=== PATIENT | female | born 1970 | race Caucasian/White ===

== ENCOUNTER 2018-08-23 09:53 | Emergency (ER) | payer MEDICAID, OTHER ==
[~2018-08-23] VITALS: Ht 160 cm; Wt 70.0 kg
[~2018-08-23 09:53] MED LIST: IBUP-1986 PO; PANT-47 PO
[2018-08-23] MEDS ORDERED: normal saline 1000ML IV soln IVB ONE (10:15)
[2018-08-23] MEDS ORDERED: ibuprofen tablet 400 MG TABLET PO ONE (10:15)
[2018-08-23 10:35] VITALS: BP 124/102
[2018-08-23 10:43] LABS: BASOPHILS # (AUTO) 0.1 X10'3 (0-0.2); BASOPHILS % (AUTO) 1.5 % (0-1); EOSINOPHILS # (AUTO) 0.2 X10'3 (0-0.9); EOSINOPHILS % (AUTO) 2.8 % (0-6); HEMOGLOBIN 15.9 g/dl (12.0-16.0); LYMPHOCYTES # (AUTO) 2.8 X10'3 (1.1-4.8); MEAN CORPUSCULAR HEMOGLOBIN 33.8 PG (27.0-31.0); MEAN CORPUSCULAR HGB CONC 33.8 % (33.0-36.5); MEAN PLATELET VOLUME 7.4 FL (7.4-10.4); MONOCYTES # (AUTO) 0.7 X10'3 (0-0.9); MONOCYTES % (AUTO) 11.5 % (2-12); NEUTROPHILS # (AUTO) 2.6 X10'3 (1.8-7.7); NEUTROPHILS % (AUTO) 40.2 % (42-75); PLATELET COUNT 266 X10'3 (140-440); RED CELL DISTRIBUTION WIDTH 13.1 % (11.5-14.5); WHITE BLOOD COUNT 6.4 X10'3 (4.5-11.0)
[2018-08-23 10:57] LABS: ALANINE AMINOTRANSFERASE 62 U/L (12-78); ALBUMIN 3.2 G/DL (3.4-5.0); ALBUMIN/GLOBULIN RATIO 0.7 (1.1-1.5); ALKALINE PHOSPHATASE 113 IU/L (46-116); ANION GAP 13 (8-16); ASPARTATE AMINO TRANSFERASE 162 U/L (10-37); BILIRUBIN,TOTAL 0.2 MG/DL (0.1-1.0); BLOOD UREA NITROGEN 12 MG/DL (7-18); CALCIUM 7.8 MG/DL (8.5-10.1); CHLORIDE 104 MMOL/L (99-107); CREATININE 0.75 MG/DL (0.40-0.90); GLUCOSE 107 MG/DL (70-104); POTASSIUM 3.4 MMOL/L (3.5-5.1); SODIUM 143 MMOL/L (135-145); TOTAL CARBON DIOXIDE 26.5 MMOL/L (24-32); TOTAL PROTEIN 7.7 G/DL (6.4-8.2); eGFR 82 ML/MIN
[2018-08-23 11:54] LABS: CLARITY,URINE CLEAR (Clear); COLOR,URINE YELLOW (Yellow); GLUCOSE, URINE NEGATIVE (Neg); KETONES,URINE NEGATIVE (Neg); LEUKOCYTE ESTERASE ,URINE NEGATIVE (Neg); NITRITES, URINE NEGATIVE (Neg); OCCULT BLOOD,URINE NEGATIVE (Neg); PROTEIN,URINE NEGATIVE (Neg); UA COLLECTION TYPE CLN CATCH MIDSTREAM; UROBILINOGEN,URINE 0.2 E.U/dL (0.2-1.0)
[2018-08-23] MEDS ORDERED: AZIT500T PO (11:57)
[2018-08-23] MEDS ORDERED: BENZ-16 PO (11:57)
[2018-08-23] MEDS ORDERED: IBUP-1985 PO (12:08)
== END 2018-08-23 12:27 | disposition home or self-care (01) ==
LOC: ER 09:54
DX: J22 Unspecified acute lower respiratory infection (principal); G89.29 Other chronic pain; Z79.899 Other long term (current) drug therapy; Z98.890 Other specified postprocedural states
CPT/HCPCS: 36415; 71045; 80053; 81003; 85025; 87502; 87503; 99284; J7030

== ENCOUNTER 2022-02-04 15:39 | Inpatient (IN) | payer MEDICAID, OTHER ==
[~2022-02-04] VITALS: Ht 160 cm; Wt 77.3 kg
[~2022-02-04 15:39] MED LIST changes: +BENZ-16 PO; +IBUP-1985 PO
[2022-02-04] MEDS ORDERED: folic acid 1mg/0.2ml inj IV ONE (15:50)
[2022-02-04] MEDS ORDERED: normal saline 1000ML IV soln IVB ONE (15:50)
[2022-02-04] MEDS ORDERED: thiamine 100mg/ml 2ml inj. IV ONE (15:50)
[2022-02-04 16:07] LABS: HEMOGLOBIN 11.9 g/dl (12.0-16.0); MEAN CORPUSCULAR VOLUME 97.3 FL (78-98); RED CELL DISTRIBUTION WIDTH 15.7 % (11.5-14.5)
[2022-02-04 16:08] LABS: BASOPHILS % (AUTO) 0.3 % (0-1); EOSINOPHILS % (AUTO) 0 % (0-6); HEMATOCRIT 34.4 % (35.0-45.0); LYMPHOCYTES # (AUTO) 1.5 X10'3 (1.1-4.8); MEAN CORPUSCULAR HEMOGLOBIN 33.6 PG (27.0-31.0); MEAN CORPUSCULAR HGB CONC 34.5 g/dL (33.0-36.5); MEAN PLATELET VOLUME 8.2 FL (7.4-10.4); MONOCYTES # (AUTO) 1.1 X10'3 (0-0.9); MONOCYTES % (AUTO) 7.7 % (2-12); NEUTROPHILS # (AUTO) 11.3 X10'3 (1.8-7.7); PLATELET COUNT 169 X10'3 (140-440); RED BLOOD COUNT 3.53 X10'6 (4.20-5.60)
[2022-02-04] MEDS ORDERED: ESCI5TAB PO (16:15)
[2022-02-04 16:49] LABS: ALANINE AMINOTRANSFERASE 40 U/L (12-78); ALBUMIN 2.4 G/DL (3.4-5.0); ALKALINE PHOSPHATASE 316 IU/L (46-116); ANION GAP 9 (8-16); ASPARTATE AMINO TRANSFERASE 325 U/L (10-37); BILIRUBIN,TOTAL 4.1 MG/DL (0.1-1.0); BLOOD UREA NITROGEN 16 MG/DL (7-18); BUN/CREATININE RATIO 26.2 (6.6-38.0); CALCIUM 7.3 MG/DL (8.5-10.1); CHLORIDE 99 MMOL/L (99-107); CREATININE 0.61 MG/DL (0.40-0.90); GLUCOSE 128 MG/DL (70-104); MAGNESIUM 1.6 MG/DL (1.5-2.4); SODIUM 140 MMOL/L (135-145); TOTAL CARBON DIOXIDE 31.6 MMOL/L (24-32); eGFR > 90 ML/MIN
[2022-02-04 16:51] LABS: ALBUMIN/GLOBULIN RATIO 0.5 (1.1-1.5); ETHANOL 0.415 GM/DL (0.0-0.010); TOTAL PROTEIN 7.2 G/DL (6.4-8.2)
[2022-02-04 16:52] LABS: POTASSIUM 2.7 MMOL/L (3.5-5.1)
[2022-02-04] MEDS ORDERED: potassium Cl 10 mEq/100mL bag IV ONE ×2 (17:00→17:19)
[2022-02-04] MEDS ORDERED: magnesium 4gm in 100ml NS 100 ML IV ONE (17:45)
[2022-02-04] MEDS ORDERED: CefTRIAXone 2gm/NS 100ml IVPB 100 ML IV ONE (17:45)
[2022-02-04 17:49] LABS: CLARITY,URINE CLEAR (Clear); COLOR,URINE YELLOW (Yellow); GLUCOSE, URINE 100 mg/dl (Neg); KETONES,URINE TRACE mg/dl (Neg); LEUKOCYTE ESTERASE ,URINE NEGATIVE (Neg); NITRITES, URINE NEGATIVE (Neg); OCCULT BLOOD,URINE NEGATIVE (Neg); PROTEIN,URINE 30 mg/dl (Neg); UA COLLECTION TYPE STRAIGHT CATH
[2022-02-04 17:55] LABS: BACTERIA,URINE NONE SEEN /HPF (Neg); RBC,URINE 0-2 /HPF (0-2); SQUAMOUS EPITHELIAL CELL,UR FEW /LPF (FEW); WBC,URINE NONE SEEN /HPF (0-4)
[2022-02-04 18:01] LABS: URINE AMPHETAMINE SCREEN NEGATIVE (Neg); URINE BARBITUATE SCREEN NEGATIVE (Neg); URINE BENZODIAZEPINES SCREEN NEGATIVE (Neg); URINE CANNABINOID SCREEN POSITIVE (Neg); URINE COCAINE SCREEN NEGATIVE (Neg); URINE METHADONE SCREEN NEGATIVE (Neg); URINE OPIATE SCREEN NEGATIVE (Neg); URINE PHENCYCLIDINE SCREEN NEGATIVE (Neg)
[2022-02-04] MEDS ORDERED: magnesium 4gm in 100ml NS 100 ML IV PRN (19:00)
[2022-02-04] MEDS ORDERED: acetaminophen 650mg rectal suppository RC PRN (19:00)
[2022-02-04] MEDS ORDERED: mag hydrox/Alum hydrox/simeth 30ml oral suspension PO PRN (19:00)
[2022-02-04] MEDS ORDERED: haloperidol lactate 5mg/ml inj IM PRN (19:00)
[2022-02-04] MEDS ORDERED: potassium CL 10mEq/100ml bag 100 ML IV PRN (19:00)
[2022-02-04] MEDS ORDERED: diphenhydrAMINE 25mg capsule PO PRN (19:00)
[2022-02-04] MEDS ORDERED: magnesium 2GM in 50ml NS 50 ML IV PRN (19:00)
[2022-02-04] MEDS: potassium Cl 20mEq in D5-NS 1,000 ML IV SCH (19:00)
[2022-02-04] MEDS ORDERED: dextrose 50%-water 50ml dispensing syringe IV PRN (19:00)
[2022-02-04] MEDS ORDERED: magnesium Cl slow-release 64mg tablet PO PRN (19:00)
[2022-02-04] MEDS ORDERED: POTASSIUM BICARB 20meq eff tab 20 MEQ TABLET.EFF PO PRN ×2 (19:00)
[2022-02-04] MEDS ORDERED: morphine 2 MG/ML inj. syringe IV PRN ×2 (19:00)
[2022-02-04] MEDS ORDERED: bisacodyl 10mg suppository rectal RC PRN (19:00)
[2022-02-04] MEDS ORDERED: ondansetron/PF 4mg/2ml inj IV PRN (19:00)
[2022-02-04] MEDS ORDERED: acetaminophen 325mg tablet PO PRN ×2 (19:00)
[2022-02-04] MEDS ORDERED: magnesium hydroxide 30ml (MOM) UD suspension PO PRN (19:00)
[2022-02-04 19:32] LABS: HEMOGLOBIN A1C 6.1 % (4.5-6.2)
[2022-02-04] MEDS ORDERED: docusate sod 100mg capsule PO SCH (20:00)
[2022-02-04] MEDS: K and/or MAG REPLACEMENT MC SCH (20:00)
[2022-02-04] MEDS: thiamine 100mg/ml 2ml inj. IV SCH (21:00)
[2022-02-04] MEDS: heparin, porcine 5000 units/ml vial SQ SCH (21:31)
--- NOTE | 2022-02-04 22:02 | NUR ---
Ellie chinchilla in ED - 02/04/22 at 2204 by TITI PT FOUND GETTING OUT OF BED. PT REFUSES TO ANSWER NURSE QUESTIONS. PT WANTED TO GET OUT OF BED AND YELLED "LET ME OUT I AM SUFFOCATING" WHEN SHE WANTED THE SIDE RAIL PUT DOWN BUT REFUSES TO TALK OTHERWISE.
--- NOTE | 2022-02-04 22:02 | NUR ---
Ellie chinchilla in [facility] - 02/04/22 at 2204 by RBKASSANDRAT PT TO CT
--- NOTE | 2022-02-04 22:22 | NUR ---
paged Dr. Blair regarding critical lactate
[2022-02-04 22:54] VITALS: BP 147/80
[2022-02-05] VITALS (7 sets, daily range): BP systolic 130–144; BP diastolic 55–80
[2022-02-05] MEDS: LORazepam 2 mg/ml vial IV PRN ×9 (01:25→23:56)
--- NOTE | 2022-02-05 02:27 | NUR ---
page sent to dr. reid about patient lactic acid being 5.3. gave verbal order for redraw in 3 hours.
[2022-02-05] MEDS ORDERED: normal saline 500ml IV soln 500 ML IV ONE (03:45)
[2022-02-05] MEDS ORDERED: piperacillin/tazo 3.375gm/50ml 50 ML IV ONE (04:08)
--- NOTE | 2022-02-05 04:23 | NUR ---
spoke with dr blair about patients status. HR sustaining in 130-140s, RR 25, temp 101.7. WBC is elevated and procal is slightly elevated. Dr. Blair gave a verbal order for 500cc bolus of NS and one time dose of zosyn.
[2022-02-05 05:18] LABS: HIV ANTIBODY 1&2 RAPID NON-REACTIVE (Neg)
--- NOTE | 2022-02-05 06:52 | NUR ---
Patient in room PCU 3015. I have received report from Amy BOLAND and had the opportunity to ask questions and assume patient care.
[2022-02-05 07:12] LABS: ALANINE AMINOTRANSFERASE 31 U/L (12-78); ALBUMIN 2.1 G/DL (3.4-5.0); ALKALINE PHOSPHATASE 256 IU/L (46-116); AMYLASE 46 U/L (25-115); ANION GAP 9 (8-16); ASPARTATE AMINO TRANSFERASE 238 U/L (10-37); BILIRUBIN,TOTAL 6.1 MG/DL (0.1-1.0); BLOOD UREA NITROGEN 17 MG/DL (7-18); CALCIUM 6.5 MG/DL (8.5-10.1); CHLORIDE 99 MMOL/L (99-107); CREATININE 0.74 MG/DL (0.40-0.90); GLUCOSE 160 MG/DL (70-104); HDL CHOLESTEROL 13 MG/DL (35-60); LDL CHOLESTEROL 80 MG/DL (50-100); MAGNESIUM 1.9 MG/DL (1.5-2.4); POTASSIUM 3.1 MMOL/L (3.5-5.1); SODIUM 134 MMOL/L (135-145); TOTAL CARBON DIOXIDE 26.5 MMOL/L (24-32); eGFR 82 ML/MIN
[2022-02-05 07:13] LABS: CHOLESTEROL 119 MG/DL (0-200); TOTAL PROTEIN 6.1 G/DL (6.4-8.2); TRIGLYCERIDES 198 MG/DL (20-135)
[2022-02-05 07:18] LABS: ALBUMIN/GLOBULIN RATIO 0.5 (1.1-1.5)
--- NOTE | 2022-02-05 07:23 | NUR ---
Paged - Critical Lab Message: [id number] Seema Lopez: Critical lab value - Phosphorus 1.0 [facility] - ext [phone] Transaction number: [id number]
[2022-02-05 07:26] LABS: EOSINOPHILS % (AUTO) 0.1 % (0-6); HEMOGLOBIN 9.5 g/dl (12.0-16.0); MONOCYTES # (AUTO) 0.8 X10'3 (0-0.9); MONOCYTES % (AUTO) 6.9 % (2-12)
[2022-02-05 07:32] LABS: HEMATOCRIT 28.2 % (35.0-45.0); MEAN CORPUSCULAR HEMOGLOBIN 32.4 PG (27.0-31.0); MEAN CORPUSCULAR HGB CONC 33.8 g/dL (33.0-36.5); MEAN CORPUSCULAR VOLUME 95.9 FL (78-98); PLATELET COUNT 102 X10'3 (140-440); RED BLOOD COUNT 2.93 X10'6 (4.20-5.60); RED CELL DISTRIBUTION WIDTH 15.5 % (11.5-14.5); WHITE BLOOD COUNT 11.7 X10'3 (4.5-11.0)
[2022-02-05 07:33] LABS: BASOPHILS # (AUTO) 0.1 X10'3 (0-0.2); BASOPHILS % (AUTO) 0.6 % (0-1); LYMPHOCYTES # (AUTO) 0.9 X10'3 (1.1-4.8); LYMPHOCYTES % (AUTO) 7.5 % (21-51); MEAN PLATELET VOLUME 9.4 FL (7.4-10.4); NEUTROPHILS # (AUTO) 9.9 X10'3 (1.8-7.7); NEUTROPHILS % (AUTO) 84.9 % (42-75)
[2022-02-05 07:34] LABS: CHOL/HDL RATIO 9.2 (0.00-4.99)
--- NOTE | 2022-02-05 07:52 | NUR ---
paged for possible sepsis: Message: [id number] Seema Lopez: Patient has following sepsis markers - Temp: 101.1, HR 144, RR 24, WBC is still pending. Constant Diarrhea. PM nurse reports PT was this way most of night, night paged but only ordered bolus of 500. Sanaz [id number] Transaction number: [id number]
[2022-02-05] MEDS: K and/or MAG REPLACEMENT MC SCH ×2 (08:00→20:00)
--- NOTE | 2022-02-05 08:52 | NUR ---
Message: LINNEA PATTON [employer]@[email or web address], [phone] HAS CRITICAL LOW PHOS@1.0 WITH NO REPLACEMENT ORDER. THX
[2022-02-05] MEDS: potassium Cl 20mEq in D5-NS 1,000 ML IV SCH ×3 (09:32→21:31)
[2022-02-05] MEDS: thiamine 100mg/ml 2ml inj. IV SCH ×3 (09:32→21:34)
[2022-02-05] MEDS: folic acid 1mg/0.2ml inj IV SCH (09:32)
[2022-02-05] MEDS: multivitamins, therapeutics tablet PO SCH (09:33)
[2022-02-05] MEDS: heparin, porcine 5000 units/ml vial SQ SCH (09:33)
[2022-02-05] MEDS: ESCITALOPRAM OXALATE 5 MG TABLET PO SCH (09:34)
[2022-02-05] MEDS ORDERED: potassium phosphate inj 30 MMOL in normal saline 500ml IV soln 500 ML IV ONE ×2 (09:35→20:00)
[2022-02-05] MEDS ORDERED: normal saline 1000ml 1,000 ML IV ONE (09:40)
[2022-02-05] MEDS: piperacillin/tazo 3.375gm/50ml 50 ML IV SCH ×2 (10:15→15:53)
[2022-02-05] MEDS ORDERED: VANCOmycin 2,000MG in NS 500ml IV soln IV ONE (11:00)
[2022-02-05] MEDS: lactulose 20gm/30ml cup PO SCH ×3 (12:03→21:32)
[2022-02-05 13:54] LABS: OCCULT BLOOD STOOL POSITIVE (Neg)
[2022-02-05 14:11] LABS: C DIFF SPECIMEN=DIARRHEA? ACCEPTABLE; C DIFFICILE TOXINS A&B NEGATIVE (Neg)
[2022-02-05] MEDS: HYDROcodone/acetaminophen 10/325mg tab PO PRN (18:00)
--- NOTE | 2022-02-05 18:00 | NUR ---
Accidentally threw norco pill package away before scanning. Ended up in bag with c diff covered wipes. Was not going to retrieve to scan. Loren - floor aid witnessed medication being administered to patient and patient taking medication, as well as pill pack in contaminated garbage.
[2022-02-05] MEDS ORDERED: vancomycin 250MG/10ML UD oral solution 10ML BOTTLE PO SCH (18:35)
[2022-02-05] MEDS ORDERED: IOHEXOL 12MG/ML oral solution 500 ML BOTTLE PO ONE (18:40)
[2022-02-05] MEDS ORDERED: diatr meglu/diatrizoate 30ml oral sol.-(3 dose) bottle PO ONE (19:50)
[2022-02-05] MEDS ORDERED: diatr meglu/diatrizoate 30ml oral sol.-(3 dose) bottle PO SCH (19:50)
[2022-02-05] MEDS: lactobacillus rhamnosus 10,000 MMU CELLS/CAPSULE PO SCH (21:33)
[2022-02-05] MEDS: vancomycin 125mg/5ml ORAL solution 5ml UD oral syringe PO SCH (21:34)
[2022-02-05] MEDS ORDERED: vancomycin/NS 1 GM ADD-VANTAGE 250 ML IV SCH (23:00)
[2022-02-06] MEDS: LORazepam 2 mg/ml vial IV PRN ×8 (01:32→22:37)
[2022-02-06 03:00] VITALS: BP 141/76
[2022-02-06] MEDS: lactulose 20gm/30ml cup PO SCH ×4 (03:12→19:56)
[2022-02-06] MEDS: vancomycin 125mg/5ml ORAL solution 5ml UD oral syringe PO SCH ×4 (03:12→20:21)
[2022-02-06] MEDS: HYDROcodone/acetaminophen 10/325mg tab PO PRN (03:14)
[2022-02-06 06:00] VITALS: BP 106/55
[2022-02-06 06:32] LABS: BASOPHILS # (AUTO) 0.1 X10'3 (0-0.2); BASOPHILS % (AUTO) 0.7 % (0-1); EOSINOPHILS % (AUTO) 0.4 % (0-6); HEMATOCRIT 28.1 % (35.0-45.0); HEMOGLOBIN 9.7 g/dl (12.0-16.0); LYMPHOCYTES # (AUTO) 0.8 X10'3 (1.1-4.8); LYMPHOCYTES % (AUTO) 8.7 % (21-51); MEAN CORPUSCULAR HEMOGLOBIN 34.2 PG (27.0-31.0); MEAN CORPUSCULAR HGB CONC 34.5 g/dL (33.0-36.5); MEAN CORPUSCULAR VOLUME 98.9 FL (78-98); MEAN PLATELET VOLUME 8.6 FL (7.4-10.4); MONOCYTES # (AUTO) 0.7 X10'3 (0-0.9); MONOCYTES % (AUTO) 7.9 % (2-12); NEUTROPHILS # (AUTO) 7.2 X10'3 (1.8-7.7); NEUTROPHILS % (AUTO) 82.3 % (42-75); PLATELET COUNT 115 X10'3 (140-440); RED BLOOD COUNT 2.85 X10'6 (4.20-5.60); RED CELL DISTRIBUTION WIDTH 16.3 % (11.5-14.5); WHITE BLOOD COUNT 8.7 X10'3 (4.5-11.0)
[2022-02-06 06:36] LABS: ALANINE AMINOTRANSFERASE 27 U/L (12-78); ALBUMIN 1.9 G/DL (3.4-5.0); ALKALINE PHOSPHATASE 245 IU/L (46-116); AMYLASE 32 U/L (25-115); ANION GAP 9 (8-16); ASPARTATE AMINO TRANSFERASE 219 U/L (10-37); BILIRUBIN,TOTAL 10.1 MG/DL (0.1-1.0); BLOOD UREA NITROGEN 13 MG/DL (7-18); BUN/CREATININE RATIO 21.7 (6.6-38.0); CALCIUM 6.1 MG/DL (8.5-10.1); CHLORIDE 109 MMOL/L (99-107); GLUCOSE 88 MG/DL (70-104); MAGNESIUM 1.6 MG/DL (1.5-2.4); SODIUM 140 MMOL/L (135-145); TOTAL CARBON DIOXIDE 22.2 MMOL/L (24-32); eGFR > 90 ML/MIN
[2022-02-06 06:39] LABS: ALBUMIN/GLOBULIN RATIO 0.5 (1.1-1.5); PHOSPHORUS 1.8 MG/DL (2.3-4.5); POTASSIUM 3.2 MMOL/L (3.5-5.1); TOTAL PROTEIN 5.8 G/DL (6.4-8.2)
[2022-02-06] MEDS ORDERED: iohexol 350MG/ML 100ml bottle IV ONE (08:00)
[2022-02-06] MEDS: K and/or MAG REPLACEMENT MC SCH ×2 (08:00→20:00)
[2022-02-06] MEDS: thiamine 100mg/ml 2ml inj. IV SCH ×3 (09:06→20:21)
[2022-02-06] MEDS: ESCITALOPRAM OXALATE 5 MG TABLET PO SCH (09:06)
[2022-02-06] MEDS: multivitamins, therapeutics tablet PO SCH (09:07)
[2022-02-06] MEDS: lactobacillus rhamnosus 10,000 MMU CELLS/CAPSULE PO SCH ×2 (09:07→19:56)
[2022-02-06] MEDS: potassium Cl 20mEq in D5-NS 1,000 ML IV SCH ×2 (09:16→23:49)
[2022-02-06 11:00] VITALS: BP 118/64
[2022-02-06] MEDS ORDERED: IOHEXOL 12MG/ML oral solution 500 ML BOTTLE PO ONE (11:15)
[2022-02-06] MEDS: folic acid 1mg/0.2ml inj IV SCH (11:28)
[2022-02-06 15:00] VITALS: BP 143/72
--- NOTE | 2022-02-06 16:36 | NUR ---
The [facility] crisis and discharge team called to provide contact information for their agency. [place] [phone], or [phone].
[2022-02-06 18:00] VITALS: BP 137/80
--- NOTE | 2022-02-06 18:35 | NUR ---
Patient in room PCU 3015. I have received report from Erinn BOLAND and had the opportunity to ask questions and assume patient care.
[2022-02-06] MEDS ORDERED: LORazepam 1 MG tablet PO PRN (19:00)
[2022-02-06] MEDS ORDERED: potassium phosphate inj 30 MMOL in normal saline 500ml IV soln 500 ML IV ONE (21:50)
[2022-02-06 22:00] VITALS: BP 128/56
[2022-02-07 02:00] VITALS: BP 122/58
[2022-02-07] MEDS: vancomycin 125mg/5ml ORAL solution 5ml UD oral syringe PO SCH ×4 (02:16→19:51)
[2022-02-07] MEDS: lactulose 20gm/30ml cup PO SCH ×4 (02:16→19:51)
[2022-02-07] MEDS: LORazepam 2 mg/ml vial IV PRN ×5 (02:17→16:28)
[2022-02-07] MEDS: HYDROcodone/acetaminophen 10/325mg tab PO PRN ×2 (04:19→14:31)
[2022-02-07 06:37] LABS: BASOPHILS # (AUTO) 0.1 X10'3 (0-0.2); EOSINOPHILS # (AUTO) 0.1 X10'3 (0-0.9); EOSINOPHILS % (AUTO) 0.5 % (0-6); HEMATOCRIT 25.4 % (35.0-45.0); HEMOGLOBIN 8.8 g/dl (12.0-16.0); LYMPHOCYTES # (AUTO) 1.1 X10'3 (1.1-4.8); LYMPHOCYTES % (AUTO) 10.6 % (21-51); MEAN CORPUSCULAR HEMOGLOBIN 35.1 PG (27.0-31.0); MEAN CORPUSCULAR HGB CONC 34.6 g/dL (33.0-36.5); MEAN CORPUSCULAR VOLUME 101.4 FL (78-98); MEAN PLATELET VOLUME 9.6 FL (7.4-10.4); MONOCYTES # (AUTO) 0.9 X10'3 (0-0.9); MONOCYTES % (AUTO) 8.8 % (2-12); NEUTROPHILS # (AUTO) 7.9 X10'3 (1.8-7.7); NEUTROPHILS % (AUTO) 79.1 % (42-75); PLATELET COUNT 110 X10'3 (140-440); RED BLOOD COUNT 2.51 X10'6 (4.20-5.60); RED CELL DISTRIBUTION WIDTH 16.3 % (11.5-14.5)
--- NOTE | 2022-02-07 06:40 | NUR ---
Problems reprioritized. Patient report given, questions answered & plan of care reviewed with Jeri BOLAND.
[2022-02-07 07:10] LABS: ALANINE AMINOTRANSFERASE 23 U/L (12-78); ALBUMIN 1.8 G/DL (3.4-5.0); ALKALINE PHOSPHATASE 219 IU/L (46-116); AMYLASE 34 U/L (25-115); ANION GAP 10 (8-16); ASPARTATE AMINO TRANSFERASE 176 U/L (10-37); BILIRUBIN,TOTAL 10.9 MG/DL (0.1-1.0); BLOOD UREA NITROGEN 10 MG/DL (7-18); CALCIUM 6.2 MG/DL (8.5-10.1); CHLORIDE 109 MMOL/L (99-107); GLUCOSE 76 MG/DL (70-104); MAGNESIUM 1.4 MG/DL (1.5-2.4); SODIUM 139 MMOL/L (135-145); TOTAL CARBON DIOXIDE 20.5 MMOL/L (24-32); eGFR > 90 ML/MIN
[2022-02-07 07:12] LABS: ALBUMIN/GLOBULIN RATIO 0.5 (1.1-1.5); PHOSPHORUS 2.7 MG/DL (2.3-4.5); POTASSIUM 3.8 MMOL/L (3.5-5.1); TOTAL PROTEIN 5.5 G/DL (6.4-8.2)
[2022-02-07] MEDS: ESCITALOPRAM OXALATE 5 MG TABLET PO SCH (08:00)
[2022-02-07] MEDS: K and/or MAG REPLACEMENT MC SCH ×2 (08:00→18:52)
[2022-02-07] MEDS: folic acid 1mg/0.2ml inj IV SCH (08:00)
[2022-02-07] MEDS: thiamine 100mg/ml 2ml inj. IV SCH ×2 (08:00→13:00)
[2022-02-07] MEDS: lactobacillus rhamnosus 10,000 MMU CELLS/CAPSULE PO SCH ×2 (08:00→19:50)
[2022-02-07] MEDS: multivitamins, therapeutics tablet PO SCH (09:45)
[2022-02-07] MEDS ORDERED: VANCOMYCIN LEVEL IV ONE (10:30)
[2022-02-07 13:31] LABS: HBSAG SCREEN Negative (Negative); HEP A AB, IGM Negative (Negative); HEPATITIS C ANTIBODY 0.2 s/co ratio (0.0-0.9)
--- NOTE | 2022-02-07 13:57 | NUR ---
While I was at lunch my patient fell. I came back and the charge nurser and sitter reported that when the sitter turned to toss a soiled chucks the patient stood up from commode and fell. She said, " I know she told me not to get up, I'm such an idiot for getting up. I fell and hit my lower back." What is your pain level i asked? "6." she reported. Doctor was informed and wants the sitter to use bed carr and bed alarm to prevent any more falls.
[2022-02-07] MEDS: potassium Cl 20mEq in D5-NS 1,000 ML IV SCH ×2 (14:00→17:16)
[2022-02-07] MEDS: Ursodiol 300mg capsule PO SCH ×2 (15:05→20:00)
[2022-02-07] MEDS: propranolol 10mg tablet PO SCH ×2 (15:15→19:50)
[2022-02-07 18:00] VITALS: BP 96/52
--- NOTE | 2022-02-07 18:45 | NUR ---
Patient in room PCU 3015. I have received report from Jeri BOLAND and had the opportunity to ask questions and assume patient care. Pt sitting up eating dinner, sitter at bedside, no signs of distress.
[2022-02-07] MEDS: lactose-reduced food (Ensure Enlive) - 237ml bottle PO SCH (18:54)
[2022-02-07 19:06] VITALS: BP 126/69
[2022-02-07 19:55] VITALS: BP 105/56
[2022-02-07 22:00] VITALS: BP 103/61
[2022-02-08] MEDS: HYDROcodone/acetaminophen 10/325mg tab PO PRN ×2 (00:23→19:18)
[2022-02-08] MEDS: potassium Cl 20mEq in D5-NS 1,000 ML IV SCH ×2 (00:47→13:00)
[2022-02-08] MEDS: vancomycin 125mg/5ml ORAL solution 5ml UD oral syringe PO SCH ×4 (02:11→19:18)
[2022-02-08] MEDS: lactulose 20gm/30ml cup PO SCH ×4 (02:11→19:17)
[2022-02-08 06:00] VITALS: BP 100/60
[2022-02-08 06:40] LABS: BASOPHILS # (AUTO) 0.1 X10'3 (0-0.2); BASOPHILS % (AUTO) 0.6 % (0-1); EOSINOPHILS # (AUTO) 0.1 X10'3 (0-0.9); EOSINOPHILS % (AUTO) 1.2 % (0-6); HEMATOCRIT 27.1 % (35.0-45.0); HEMOGLOBIN 9.3 g/dl (12.0-16.0); MEAN CORPUSCULAR HEMOGLOBIN 35.3 PG (27.0-31.0); MEAN CORPUSCULAR HGB CONC 34.3 g/dL (33.0-36.5); MEAN CORPUSCULAR VOLUME 102.9 FL (78-98); MEAN PLATELET VOLUME 8.7 FL (7.4-10.4); MONOCYTES # (AUTO) 1.1 X10'3 (0-0.9); MONOCYTES % (AUTO) 10.5 % (2-12); NEUTROPHILS # (AUTO) 7.8 X10'3 (1.8-7.7); NEUTROPHILS % (AUTO) 77.7 % (42-75); PLATELET COUNT 157 X10'3 (140-440); RED BLOOD COUNT 2.64 X10'6 (4.20-5.60); RED CELL DISTRIBUTION WIDTH 17.1 % (11.5-14.5)
--- NOTE | 2022-02-08 06:57 | NUR ---
Problems reprioritized. Patient report given, questions answered & plan of care reviewed with Jhoana BOLAND.
[2022-02-08 07:10] LABS: ALANINE AMINOTRANSFERASE 22 U/L (12-78); ALBUMIN 1.8 G/DL (3.4-5.0); ALKALINE PHOSPHATASE 215 IU/L (46-116); ANION GAP 10 (8-16); ASPARTATE AMINO TRANSFERASE 145 U/L (10-37); BILIRUBIN,TOTAL 11.9 MG/DL (0.1-1.0); BLOOD UREA NITROGEN 12 MG/DL (7-18); BUN/CREATININE RATIO 20.3 (6.6-38.0); CALCIUM 6.5 MG/DL (8.5-10.1); CHLORIDE 110 MMOL/L (99-107); CREATININE 0.59 MG/DL (0.40-0.90); GLUCOSE 120 MG/DL (70-104); MAGNESIUM 1.5 MG/DL (1.5-2.4); SODIUM 140 MMOL/L (135-145); TOTAL CARBON DIOXIDE 20.1 MMOL/L (24-32); eGFR > 90 ML/MIN
[2022-02-08 07:11] LABS: ALBUMIN/GLOBULIN RATIO 0.5 (1.1-1.5); POTASSIUM 3.9 MMOL/L (3.5-5.1); TOTAL PROTEIN 5.6 G/DL (6.4-8.2)
[2022-02-08 07:16] LABS: PHOSPHORUS 1.1 MG/DL (2.3-4.5)
[2022-02-08] MEDS: nicotine 21mg patch - 24 hr TD SCH (08:00)
[2022-02-08] MEDS: K and/or MAG REPLACEMENT MC SCH ×2 (08:00→19:01)
[2022-02-08] MEDS: ESCITALOPRAM OXALATE 5 MG TABLET PO SCH (08:17)
[2022-02-08] MEDS: multivitamins, therapeutics tablet PO SCH (08:17)
[2022-02-08] MEDS: lactose-reduced food (Ensure Enlive) - 237ml bottle PO SCH ×3 (08:17→18:00)
[2022-02-08] MEDS: lactobacillus rhamnosus 10,000 MMU CELLS/CAPSULE PO SCH ×2 (08:17→19:17)
[2022-02-08] MEDS: propranolol 10mg tablet PO SCH ×3 (08:17→19:18)
[2022-02-08] MEDS ORDERED: potassium phosphate inj 30 MMOL in normal saline 500ml IV soln 500 ML IV ONE (08:35)
[2022-02-08] MEDS ORDERED: sodium phosphate inj. 15 MMOL in dextrose 5%-water 250 ML IV PRN (08:40)
[2022-02-08] MEDS ORDERED: sodium phosphate inj. 30 MMOL in dextrose 5% water 500ml 500 ML IV PRN (08:40)
--- NOTE | 2022-02-08 09:11 | NUR ---
Initial: Pt admitted w/ alcohol intoxication, C.Diff, sepsis, and cirrhosis per EMR. Pt currently on [facility] soft diet per PLAYGROUND ATTENDANT recs w/ low intake, avg 27% x 5 meals not meeting needs, though not surprising given pt condition. Ensure Enlive TID was also ordered and pt has consumed 50% of first ONS. Pt noted to be A&O x 2. Pt also receiving D5NS w/ KCl at 100ml/hr providing an additional 408kcals/day. LBM 02/07 noted to be diarrhea, though r/t C.diff and routine lactulose for elevated NH3. No nutrition intervention implemented at this time, will continue to monitor. Recs: 1. [facility] per PLAYGROUND ATTENDANT recs, assist w/ meals 2. Ensure Enlive TID 3. Bowel care per MD 4. Weekly scaled wts Addendum: 02/08/22 at [address] Amended: Links added.
[2022-02-08 11:00] VITALS: BP 104/67
--- NOTE | 2022-02-08 12:37 | NUR ---
Sent to [facility]: [id number] [place]: please renew the [id number] hold. thank you.
[2022-02-08] MEDS: prednisone 10mg tablet PO SCH (12:45)
[2022-02-08] MEDS: Ursodiol 300mg capsule PO SCH ×2 (13:11→19:18)
[2022-02-08 18:00] VITALS: BP 104/64
[2022-02-08] MEDS ORDERED: LORazepam 2 mg/ml vial IV PRN (19:00)
[2022-02-08] MEDS: LORazepam 1 MG tablet PO PRN (21:17)
[2022-02-08 22:00] VITALS: BP 91/57
[2022-02-08] MEDS: HYDROcodone/acetaminophen 5mg/325mg tablet PO PRN (23:32)
[2022-02-09 02:00] VITALS: BP 100/65
[2022-02-09] MEDS: vancomycin 125mg/5ml ORAL solution 5ml UD oral syringe PO SCH ×4 (04:03→19:36)
[2022-02-09] MEDS: HYDROcodone/acetaminophen 5mg/325mg tablet PO PRN ×2 (04:03→07:48)
[2022-02-09] MEDS: potassium Cl 20mEq in D5-NS 1,000 ML IV SCH (04:03)
[2022-02-09] MEDS: lactulose 20gm/30ml cup PO SCH ×4 (04:03→19:36)
[2022-02-09 06:00] VITALS: BP_SYST 106; BP_SYST 16; BP_DIAS 72
[2022-02-09 06:35] LABS: BASOPHILS # (AUTO) 0.1 X10'3 (0-0.2); EOSINOPHILS % (AUTO) 0.1 % (0-6); HEMOGLOBIN 9.6 g/dl (12.0-16.0); WHITE BLOOD COUNT 11.5 X10'3 (4.5-11.0)
[2022-02-09 06:38] LABS: BASOPHILS % (AUTO) 0.5 % (0-1); HEMATOCRIT 28.4 % (35.0-45.0); LYMPHOCYTES # (AUTO) 0.9 X10'3 (1.1-4.8); LYMPHOCYTES % (AUTO) 7.4 % (21-51); MEAN CORPUSCULAR HEMOGLOBIN 35.8 PG (27.0-31.0); MEAN CORPUSCULAR HGB CONC 33.9 g/dL (33.0-36.5); MEAN CORPUSCULAR VOLUME 105.8 FL (78-98); MEAN PLATELET VOLUME 9.3 FL (7.4-10.4); MONOCYTES # (AUTO) 1.3 X10'3 (0-0.9); MONOCYTES % (AUTO) 11.4 % (2-12); NEUTROPHILS # (AUTO) 9.3 X10'3 (1.8-7.7); NEUTROPHILS % (AUTO) 80.6 % (42-75); PLATELET COUNT 182 X10'3 (140-440); RED BLOOD COUNT 2.68 X10'6 (4.20-5.60); RED CELL DISTRIBUTION WIDTH 17.9 % (11.5-14.5)
--- NOTE | 2022-02-09 06:41 | NUR ---
Patient in room PCU 3015. I have received report from KRYSTIAN Mckeon and had the opportunity to ask questions and assume patient care.
[2022-02-09 07:07] LABS: ALANINE AMINOTRANSFERASE 21 U/L (12-78); ALBUMIN 1.7 G/DL (3.4-5.0); ALKALINE PHOSPHATASE 209 IU/L (46-116); ANION GAP 11 (8-16); ASPARTATE AMINO TRANSFERASE 120 U/L (10-37); BILIRUBIN,TOTAL 12.6 MG/DL (0.1-1.0); BLOOD UREA NITROGEN 16 MG/DL (7-18); BUN/CREATININE RATIO 24.2 (6.6-38.0); CALCIUM 6.9 MG/DL (8.5-10.1); CHLORIDE 112 MMOL/L (99-107); CREATININE 0.66 MG/DL (0.40-0.90); GLUCOSE 139 MG/DL (70-104); MAGNESIUM 1.6 MG/DL (1.5-2.4); SODIUM 141 MMOL/L (135-145); TOTAL CARBON DIOXIDE 18.1 MMOL/L (24-32); eGFR > 90 ML/MIN
[2022-02-09 07:08] LABS: ALBUMIN/GLOBULIN RATIO 0.4 (1.1-1.5); PHOSPHORUS 6.9 MG/DL (2.3-4.5); TOTAL PROTEIN 5.5 G/DL (6.4-8.2)
[2022-02-09] MEDS: nicotine 21mg patch - 24 hr TD SCH (07:46)
[2022-02-09] MEDS: multivitamins, therapeutics tablet PO SCH (07:46)
[2022-02-09] MEDS: LORazepam 1 MG tablet PO PRN (07:47)
[2022-02-09] MEDS: Ursodiol 300mg capsule PO SCH ×2 (07:47→19:36)
[2022-02-09] MEDS: lactobacillus rhamnosus 10,000 MMU CELLS/CAPSULE PO SCH ×2 (07:47→19:37)
[2022-02-09] MEDS: thiamine 100mg tablet PO SCH (07:47)
[2022-02-09] MEDS: prednisone 10mg tablet PO SCH (07:47)
[2022-02-09] MEDS: propranolol 10mg tablet PO SCH ×3 (07:47→21:27)
[2022-02-09] MEDS: folic acid 1mg tablet PO SCH (07:47)
[2022-02-09] MEDS: ESCITALOPRAM OXALATE 5 MG TABLET PO SCH (07:47)
[2022-02-09] MEDS: lactose-reduced food (Ensure Enlive) - 237ml bottle PO SCH ×3 (07:59→18:12)
[2022-02-09] MEDS: K and/or MAG REPLACEMENT MC SCH ×2 (08:00→20:00)
[2022-02-09 11:00] VITALS: BP 103/61
--- NOTE | 2022-02-09 12:02 | NUR ---
Message: Мария [facility] [phone] re Jessica [phone] please call re IV fluid orders. Current fluids ordered have reached stop date and have been DC'd by pharmacy. Thank you
--- NOTE | 2022-02-09 12:03 | NUR ---
Reassessment for potassium phosphate scheduled for 02/08 not charted by RN. This RN was not assigned pt during that shift.
[2022-02-09] MEDS: dextrose 5%-normal saline 1,000 ML IV SCH (12:47)
[2022-02-09] MEDS: HYDROcodone/acetaminophen 10/325mg tab PO PRN ×3 (14:14→22:42)
[2022-02-09 15:00] VITALS: BP 91/62
[2022-02-09 18:00] VITALS: BP 104/65
--- NOTE | 2022-02-09 18:26 | NUR ---
Problems reprioritized. Patient report given, questions answered & plan of care reviewed with JOSELYN Valenzuela.
[2022-02-09 22:00] VITALS: BP 105/67
[2022-02-10] MEDS: lactulose 20gm/30ml cup PO SCH ×4 (01:22→19:29)
[2022-02-10] MEDS: vancomycin 125mg/5ml ORAL solution 5ml UD oral syringe PO SCH ×4 (01:22→19:29)
[2022-02-10] MEDS: haloperidol 5mg tablet PO PRN (01:23)
[2022-02-10 02:00] VITALS: BP 123/87
[2022-02-10] MEDS: HYDROcodone/acetaminophen 10/325mg tab PO PRN ×3 (03:52→13:57)
[2022-02-10 06:00] VITALS: BP 113/67
--- NOTE | 2022-02-10 06:11 | NUR ---
Problems reprioritized. Patient report given, questions answered & plan of care reviewed with maeve.
--- NOTE | 2022-02-10 06:35 | NUR ---
Patient in room PCU 3015. I have received report from JOSELYN Valenzuela and had the opportunity to ask questions and assume patient care.
[2022-02-10 06:53] LABS: BASOPHILS # (AUTO) 0.1 X10'3 (0-0.2); EOSINOPHILS % (AUTO) 0.2 % (0-6); HEMOGLOBIN 9.7 g/dl (12.0-16.0); MEAN PLATELET VOLUME 9.3 FL (7.4-10.4); MONOCYTES # (AUTO) 1.2 X10'3 (0-0.9); MONOCYTES % (AUTO) 11.8 % (2-12)
[2022-02-10 06:55] LABS: BASOPHILS % (AUTO) 0.7 % (0-1); HEMATOCRIT 28.7 % (35.0-45.0); LYMPHOCYTES # (AUTO) 1.1 X10'3 (1.1-4.8); LYMPHOCYTES % (AUTO) 10.5 % (21-51); MEAN CORPUSCULAR HEMOGLOBIN 35.7 PG (27.0-31.0); MEAN CORPUSCULAR HGB CONC 33.9 g/dL (33.0-36.5); MEAN CORPUSCULAR VOLUME 105.1 FL (78-98); NEUTROPHILS # (AUTO) 7.9 X10'3 (1.8-7.7); NEUTROPHILS % (AUTO) 76.8 % (42-75); PLATELET COUNT 246 X10'3 (140-440); RED BLOOD COUNT 2.73 X10'6 (4.20-5.60); RED CELL DISTRIBUTION WIDTH 18.6 % (11.5-14.5); WHITE BLOOD COUNT 10.4 X10'3 (4.5-11.0)
[2022-02-10 07:14] LABS: ALANINE AMINOTRANSFERASE 26 U/L (12-78); ALBUMIN 1.7 G/DL (3.4-5.0); ALKALINE PHOSPHATASE 203 IU/L (46-116); ANION GAP 5 (8-16); ASPARTATE AMINO TRANSFERASE 135 U/L (10-37); BILIRUBIN,TOTAL 12.9 MG/DL (0.1-1.0); BLOOD UREA NITROGEN 19 MG/DL (7-18); BUN/CREATININE RATIO 27.1 (6.6-38.0); CALCIUM 7.6 MG/DL (8.5-10.1); CHLORIDE 113 MMOL/L (99-107); GLUCOSE 104 MG/DL (70-104); MAGNESIUM 1.6 MG/DL (1.5-2.4); SODIUM 138 MMOL/L (135-145); TOTAL CARBON DIOXIDE 19.8 MMOL/L (24-32); eGFR 88 ML/MIN
[2022-02-10 07:16] LABS: ALBUMIN/GLOBULIN RATIO 0.4 (1.1-1.5); PHOSPHORUS 1.7 MG/DL (2.3-4.5); POTASSIUM 4.1 MMOL/L (3.5-5.1); TOTAL PROTEIN 5.6 G/DL (6.4-8.2)
[2022-02-10 07:30] LABS: ANISOCYTOSIS 2+; HYPOCHROMASIA 1+; PLATELET ESTIMATE NORMAL; POLYCHROMASIA 1+; TARGET CELLS FEW
[2022-02-10] MEDS: K and/or MAG REPLACEMENT MC SCH ×2 (08:00→18:46)
[2022-02-10] MEDS: prednisone 10mg tablet PO SCH (08:01)
[2022-02-10] MEDS: ESCITALOPRAM OXALATE 5 MG TABLET PO SCH (08:01)
[2022-02-10] MEDS: dextrose 5%-normal saline 1,000 ML IV SCH (08:01)
[2022-02-10] MEDS: thiamine 100mg tablet PO SCH (08:02)
[2022-02-10] MEDS: propranolol 10mg tablet PO SCH ×3 (08:02→20:19)
[2022-02-10] MEDS: lactobacillus rhamnosus 10,000 MMU CELLS/CAPSULE PO SCH ×2 (08:02→19:29)
[2022-02-10] MEDS: Ursodiol 300mg capsule PO SCH ×2 (08:02→19:29)
[2022-02-10] MEDS: multivitamins, therapeutics tablet PO SCH (08:02)
[2022-02-10] MEDS: folic acid 1mg tablet PO SCH (08:02)
[2022-02-10] MEDS: nicotine 21mg patch - 24 hr TD SCH (08:03)
[2022-02-10] MEDS: lactose-reduced food (Ensure Enlive) - 237ml bottle PO SCH ×3 (08:03→18:09)
[2022-02-10 11:00] VITALS: BP 111/72
[2022-02-10] MEDS: LORazepam 1 MG tablet PO PRN ×2 (14:02→20:18)
[2022-02-10 15:00] VITALS: BP 113/67
[2022-02-10 18:00] VITALS: BP 105/65
--- NOTE | 2022-02-10 18:14 | NUR ---
Problems reprioritized. Patient report given, questions answered & plan of care reviewed with JOSELYN Valenzuela.
[2022-02-10 22:00] VITALS: BP 122/59
[2022-02-11] VITALS (7 sets, daily range): BP systolic 92–116; BP diastolic 42–67
[2022-02-11] MEDS: lactulose 20gm/30ml cup PO SCH ×4 (02:14→18:53)
[2022-02-11] MEDS: vancomycin 125mg/5ml ORAL solution 5ml UD oral syringe PO SCH ×4 (02:14→22:11)
[2022-02-11] MEDS: LORazepam 1 MG tablet PO PRN ×4 (02:15→22:12)
[2022-02-11] MEDS: dextrose 5%-normal saline 1,000 ML IV SCH (03:22)
--- NOTE | 2022-02-11 04:31 | NUR ---
Agreed with the physical assessment documented at 199902/10/2022.
--- NOTE | 2022-02-11 06:10 | NUR ---
Problems reprioritized. Patient report given, questions answered & plan of care reviewed with aiden.
[2022-02-11 07:04] LABS: BASOPHILS # (AUTO) 0.1 X10'3 (0-0.2); RED BLOOD COUNT 2.65 X10'6 (4.20-5.60)
[2022-02-11 07:07] LABS: BASOPHILS % (AUTO) 0.5 % (0-1); EOSINOPHILS % (AUTO) 0.2 % (0-6); HEMOGLOBIN 9.7 g/dl (12.0-16.0); LYMPHOCYTES # (AUTO) 1.1 X10'3 (1.1-4.8); LYMPHOCYTES % (AUTO) 10.8 % (21-51); MEAN CORPUSCULAR HEMOGLOBIN 36.5 PG (27.0-31.0); MEAN CORPUSCULAR HGB CONC 34.5 g/dL (33.0-36.5); MEAN CORPUSCULAR VOLUME 105.6 FL (78-98); MEAN PLATELET VOLUME 8.9 FL (7.4-10.4); MONOCYTES # (AUTO) 1.1 X10'3 (0-0.9); NEUTROPHILS # (AUTO) 7.7 X10'3 (1.8-7.7); NEUTROPHILS % (AUTO) 77.5 % (42-75); PLATELET COUNT 283 X10'3 (140-440); RED CELL DISTRIBUTION WIDTH 19.2 % (11.5-14.5); WHITE BLOOD COUNT 9.9 X10'3 (4.5-11.0)
[2022-02-11 07:19] LABS: ALANINE AMINOTRANSFERASE 32 U/L (12-78); ALBUMIN 1.6 G/DL (3.4-5.0); ALBUMIN/GLOBULIN RATIO 0.4 (1.1-1.5); ALKALINE PHOSPHATASE 192 IU/L (46-116); ANION GAP 9 (8-16); ASPARTATE AMINO TRANSFERASE 135 U/L (10-37); BILIRUBIN,TOTAL 11.7 MG/DL (0.1-1.0); BLOOD UREA NITROGEN 16 MG/DL (7-18); BUN/CREATININE RATIO 22.5 (6.6-38.0); CHLORIDE 112 MMOL/L (99-107); CREATININE 0.71 MG/DL (0.40-0.90); GLUCOSE 82 MG/DL (70-104); MAGNESIUM 1.4 MG/DL (1.5-2.4); PHOSPHORUS 1.9 MG/DL (2.3-4.5); POTASSIUM 3.8 MMOL/L (3.5-5.1); SODIUM 143 MMOL/L (135-145); TOTAL CARBON DIOXIDE 22.1 MMOL/L (24-32); TOTAL PROTEIN 5.3 G/DL (6.4-8.2); eGFR 86 ML/MIN
[2022-02-11] MEDS: lactose-reduced food (Ensure Enlive) - 237ml bottle PO SCH ×3 (08:00→17:57)
[2022-02-11] MEDS: K and/or MAG REPLACEMENT MC SCH ×2 (08:00→19:17)
[2022-02-11 08:09] LABS: ANISOCYTOSIS 2+; NUCLEATED RED BLOOD CELLS 1 /100WBC (0-0); PLATELET ESTIMATE NORMAL; TARGET CELLS 1+; TOTAL CELLS COUNTED 100
[2022-02-11] MEDS ORDERED: magnesium 4gm in 100ml NS 100 ML IV PRN (08:55)
[2022-02-11] MEDS ORDERED: potassium CL 10mEq/100ml bag 100 ML IV PRN (08:55)
[2022-02-11] MEDS ORDERED: potassium Cl 20 mEq SR tablet PO PRN (08:55)
[2022-02-11] MEDS: folic acid 1mg tablet PO SCH (09:10)
[2022-02-11] MEDS: prednisone 10mg tablet PO SCH (09:10)
[2022-02-11] MEDS: thiamine 100mg tablet PO SCH (09:10)
[2022-02-11] MEDS: lactobacillus rhamnosus 10,000 MMU CELLS/CAPSULE PO SCH ×2 (09:11→18:52)
[2022-02-11] MEDS: multivitamins, therapeutics tablet PO SCH (09:11)
[2022-02-11] MEDS: ESCITALOPRAM OXALATE 5 MG TABLET PO SCH (09:11)
[2022-02-11] MEDS: Neutra Phos packet PO PRN ×3 (09:11→18:53)
[2022-02-11] MEDS: Ursodiol 300mg capsule PO SCH ×2 (09:11→18:52)
[2022-02-11] MEDS: nicotine 21mg patch - 24 hr TD SCH (09:12)
[2022-02-11] MEDS: propranolol 10mg tablet PO SCH ×3 (09:13→18:53)
[2022-02-11] MEDS: magnesium Cl slow-release 64mg tablet PO PRN (09:13)
[2022-02-11] MEDS: HYDROcodone/acetaminophen 10/325mg tab PO PRN ×3 (09:14→22:11)
--- NOTE | 2022-02-11 09:41 | NUR ---
promotional table spacer Page Accepted promotional table spacer Message: Room: 3015A: Jessica Marley: This pt is endorsing increased SOB this AM and edema in her lower extremities. Lung sounds are diminished with crackles. Respiratory has been paged. BLE edema is +2 non pitting. KRYSTIAN Holguin [phone] Custom Responses: promotional table spacer Transaction number: [id number]
--- NOTE | 2022-02-11 09:54 | NUR ---
promotional table spacer Page Accepted promotional table spacer Message: Room: 3015A: Marley Lopez: I'm going to hold her IV fluids because I think it might be either related or worsening her increased SOB and edema. Chelsie RN [id number] Custom Responses: promotional table spacer Transaction number: [id number]
[2022-02-11] MEDS ORDERED: furosemide 40mg/4ml inj IV ONE (16:05)
[2022-02-11] MEDS ORDERED: potassium phosphate inj 30 MMOL in normal saline 500ml IV soln 500 ML IV ONE (16:05)
[2022-02-11] MEDS: spironolactone 25 MG tablet PO SCH (16:31)
--- NOTE | 2022-02-11 18:00 | NUR ---
Patient in room PCU 3015. I have received report from aiden mills and had the opportunity to ask questions and assume patient care.
[2022-02-11] MEDS: haloperidol 5mg tablet PO PRN ×2 (18:51→22:12)
[2022-02-11] MEDS: furosemide 40mg/4ml inj IV SCH (18:53)
[2022-02-12 02:00] VITALS: BP 105/58
[2022-02-12] MEDS: LORazepam 1 MG tablet PO PRN ×3 (03:40→22:49)
[2022-02-12] MEDS: vancomycin 125mg/5ml ORAL solution 5ml UD oral syringe PO SCH ×4 (03:40→20:30)
[2022-02-12] MEDS: lactulose 20gm/30ml cup PO SCH ×4 (03:40→20:29)
[2022-02-12 06:00] VITALS: BP 98/54
[2022-02-12 06:32] LABS: HEMOGLOBIN 9.9 g/dl (12.0-16.0)
[2022-02-12 06:35] LABS: HEMATOCRIT 29.4 % (35.0-45.0); MEAN CORPUSCULAR HEMOGLOBIN 35.3 PG (27.0-31.0); MEAN CORPUSCULAR HGB CONC 33.6 g/dL (33.0-36.5); MEAN PLATELET VOLUME 9.8 FL (7.4-10.4); PLATELET COUNT 289 X10'3 (140-440); RED CELL DISTRIBUTION WIDTH 18.5 % (11.5-14.5); WHITE BLOOD COUNT 12.3 X10'3 (4.5-11.0)
--- NOTE | 2022-02-12 06:45 | NUR ---
Problems reprioritized. Patient report given, questions answered & plan of care reviewed with guillaume mills.
[2022-02-12 07:03] LABS: ALANINE AMINOTRANSFERASE 34 U/L (12-78); ALBUMIN 1.7 G/DL (3.4-5.0); ALKALINE PHOSPHATASE 190 IU/L (46-116); ANION GAP 12 (8-16); ASPARTATE AMINO TRANSFERASE 143 U/L (10-37); BILIRUBIN,TOTAL 12.9 MG/DL (0.1-1.0); BLOOD UREA NITROGEN 19 MG/DL (7-18); CALCIUM 8.4 MG/DL (8.5-10.1); CHLORIDE 112 MMOL/L (99-107); CREATININE 0.73 MG/DL (0.40-0.90); GLUCOSE 92 MG/DL (70-104); MAGNESIUM 1.6 MG/DL (1.5-2.4); SODIUM 146 MMOL/L (135-145); eGFR 84 ML/MIN
[2022-02-12 07:08] LABS: ALBUMIN/GLOBULIN RATIO 0.5 (1.1-1.5); PHOSPHORUS 4.1 MG/DL (2.3-4.5); POTASSIUM 3.8 MMOL/L (3.5-5.1); TOTAL PROTEIN 5.4 G/DL (6.4-8.2)
[2022-02-12 07:35] LABS: NUCLEATED RED BLOOD CELLS 1 /100WBC (0-0); TOTAL CELLS COUNTED 100
[2022-02-12 07:36] LABS: ANISOCYTOSIS 2+; PLATELET ESTIMATE NORMAL; POLYCHROMASIA 1+; STOMATOCYTES 1+; TARGET CELLS FEW
[2022-02-12] MEDS: lactose-reduced food (Ensure Enlive) - 237ml bottle PO SCH ×3 (08:00→18:00)
[2022-02-12] MEDS: K and/or MAG REPLACEMENT MC SCH ×2 (08:00→20:00)
--- NOTE | 2022-02-12 09:03 | NUR ---
Pt continues on Mechanical soft diet w/ similar intake, avg 36% of meals and 56% of ONS TID. Overall meeting 100% of est energy needs and 89% of est protein needs. LBM 02/11 continues to have diarrhea though has C.diff and receiving routine lactulose r/t elevated ammonia. No change to recommendations at this time ,will continue to monitor. Recs: 1. Continue [facility] soft diet per CAFETERIA CASHIER recs, assist w/ meals 2. Ensure Enlive TID 3. Bowel care per MD 4. Weekly scaled wts Addendum: 02/12/22 at [address] Amended: Links added.
[2022-02-12] MEDS: Ursodiol 300mg capsule PO SCH ×2 (10:13→20:29)
[2022-02-12] MEDS: HYDROcodone/acetaminophen 10/325mg tab PO PRN (10:13)
[2022-02-12] MEDS: lactobacillus rhamnosus 10,000 MMU CELLS/CAPSULE PO SCH ×2 (10:14→20:30)
[2022-02-12] MEDS: ESCITALOPRAM OXALATE 5 MG TABLET PO SCH (10:14)
[2022-02-12] MEDS: thiamine 100mg tablet PO SCH (10:14)
[2022-02-12] MEDS: spironolactone 25 MG tablet PO SCH (10:14)
[2022-02-12] MEDS: propranolol 10mg tablet PO SCH ×3 (10:14→20:31)
[2022-02-12] MEDS: furosemide 40mg/4ml inj IV SCH ×2 (10:15→20:27)
[2022-02-12] MEDS: multivitamins, therapeutics tablet PO SCH (10:15)
[2022-02-12] MEDS: folic acid 1mg tablet PO SCH (10:15)
[2022-02-12] MEDS: prednisone 10mg tablet PO SCH (10:15)
[2022-02-12] MEDS: nicotine 21mg patch - 24 hr TD SCH (10:16)
[2022-02-12 11:00] VITALS: BP 132/72
[2022-02-12 18:00] VITALS: BP 96/58
--- NOTE | 2022-02-12 19:04 | NUR ---
Patient in room PCU 3015. I have received report from Halle BOLAND and had the opportunity to ask questions and assume patient care.
[2022-02-12] MEDS: HYDROcodone/acetaminophen 5mg/325mg tablet PO PRN (20:32)
[2022-02-12 22:00] VITALS: BP 98/57
[2022-02-13 02:00] VITALS: BP 97/41
[2022-02-13] MEDS: lactulose 20gm/30ml cup PO SCH ×4 (02:00→19:24)
[2022-02-13] MEDS: vancomycin 125mg/5ml ORAL solution 5ml UD oral syringe PO SCH ×4 (02:09→22:46)
--- NOTE | 2022-02-13 02:12 | NUR ---
Patient has refused both doses of lactulose this evening stating that she wants to talk to the doctor first as has been passing clear liquid stools.
[2022-02-13 06:46] LABS: HEMOGLOBIN 9.5 g/dl (12.0-16.0)
[2022-02-13 06:49] LABS: HEMATOCRIT 27.8 % (35.0-45.0); MEAN CORPUSCULAR HEMOGLOBIN 36.9 PG (27.0-31.0); MEAN CORPUSCULAR HGB CONC 34.3 g/dL (33.0-36.5); MEAN CORPUSCULAR VOLUME 107.5 FL (78-98); MEAN PLATELET VOLUME 9.4 FL (7.4-10.4); PLATELET COUNT 304 X10'3 (140-440); RED BLOOD COUNT 2.59 X10'6 (4.20-5.60); RED CELL DISTRIBUTION WIDTH 20.1 % (11.5-14.5); WHITE BLOOD COUNT 13.6 X10'3 (4.5-11.0)
--- NOTE | 2022-02-13 06:50 | NUR ---
Problems reprioritized. Patient report given, questions answered & plan of care reviewed with Genesis BOLAND.
--- NOTE | 2022-02-13 06:56 | NUR ---
Patient in room PCU 3015. I have received report from Kayla BOLAND and had the opportunity to ask questions and assume patient care.
[2022-02-13 07:08] VITALS: BP 92/43
[2022-02-13 07:13] LABS: ALANINE AMINOTRANSFERASE 29 U/L (12-78); ALBUMIN 1.6 G/DL (3.4-5.0); ALKALINE PHOSPHATASE 173 IU/L (46-116); ANION GAP 11 (8-16); ASPARTATE AMINO TRANSFERASE 115 U/L (10-37); BILIRUBIN,TOTAL 13.3 MG/DL (0.1-1.0); BLOOD UREA NITROGEN 23 MG/DL (7-18); BUN/CREATININE RATIO 30.3 (6.6-38.0); CALCIUM 8.4 MG/DL (8.5-10.1); CHLORIDE 108 MMOL/L (99-107); CREATININE 0.76 MG/DL (0.40-0.90); GLUCOSE 80 MG/DL (70-104); MAGNESIUM 1.2 MG/DL (1.5-2.4); SODIUM 143 MMOL/L (135-145); TOTAL CARBON DIOXIDE 23.6 MMOL/L (24-32); eGFR 80 ML/MIN
[2022-02-13 07:16] LABS: ALBUMIN/GLOBULIN RATIO 0.5 (1.1-1.5); PHOSPHORUS 4.2 MG/DL (2.3-4.5); POTASSIUM 3.2 MMOL/L (3.5-5.1); TOTAL PROTEIN 5.1 G/DL (6.4-8.2)
[2022-02-13 07:25] LABS: PLATELET ESTIMATE NORMAL; TOTAL CELLS COUNTED 100
[2022-02-13 07:26] LABS: ANISOCYTOSIS 3+
[2022-02-13 07:27] LABS: LARGE PLATELETS FEW; POLYCHROMASIA FEW; TARGET CELLS FEW
[2022-02-13] MEDS: lactose-reduced food (Ensure Enlive) - 237ml bottle PO SCH ×3 (08:00→18:39)
[2022-02-13] MEDS: K and/or MAG REPLACEMENT MC SCH ×2 (08:00→22:51)
[2022-02-13] MEDS: nicotine 21mg patch - 24 hr TD SCH (08:38)
[2022-02-13] MEDS: prednisone 10mg tablet PO SCH (08:38)
[2022-02-13] MEDS: folic acid 1mg tablet PO SCH (08:38)
[2022-02-13] MEDS: spironolactone 25 MG tablet PO SCH (08:40)
[2022-02-13] MEDS: propranolol 10mg tablet PO SCH ×3 (08:40→20:32)
[2022-02-13] MEDS: furosemide 40mg/4ml inj IV SCH ×2 (08:41→19:24)
[2022-02-13] MEDS: ESCITALOPRAM OXALATE 5 MG TABLET PO SCH (08:41)
[2022-02-13] MEDS: Ursodiol 300mg capsule PO SCH ×2 (08:41→19:24)
[2022-02-13] MEDS: lactobacillus rhamnosus 10,000 MMU CELLS/CAPSULE PO SCH ×2 (08:41→19:24)
[2022-02-13] MEDS: thiamine 100mg tablet PO SCH (08:41)
[2022-02-13] MEDS: multivitamins, therapeutics tablet PO SCH (08:43)
[2022-02-13] MEDS: LORazepam 1 MG tablet PO PRN ×3 (08:59→19:29)
[2022-02-13 11:00] VITALS: BP 106/58
[2022-02-13] MEDS: HYDROcodone/acetaminophen 10/325mg tab PO PRN (11:52)
[2022-02-13] MEDS: potassium Cl 20 mEq SR tablet PO PRN ×3 (12:00→22:46)
[2022-02-13] MEDS: magnesium Cl slow-release 64mg tablet PO PRN (14:51)
[2022-02-13 15:00] VITALS: BP 96/55
[2022-02-13 18:00] VITALS: BP 96/57
--- NOTE | 2022-02-13 18:15 | NUR ---
Patient in room PCU 3015. I have received report from Genesis BOLAND and had the opportunity to ask questions and assume patient care.
--- NOTE | 2022-02-13 18:37 | NUR ---
patient c/o pain and anxiety medicated x2 with good results. sitter remains in room. No vocalization of suicidal ideation. Mg and K being replaced. Seen by Dr flores . Report given to Cris BOLAND
[2022-02-13] MEDS: HYDROcodone/acetaminophen 5mg/325mg tablet PO PRN (20:35)
[2022-02-13 22:00] VITALS: BP 104/53
[2022-02-14] MEDS: LORazepam 1 MG tablet PO PRN ×4 (01:06→19:54)
[2022-02-14] MEDS: vancomycin 125mg/5ml ORAL solution 5ml UD oral syringe PO SCH ×4 (01:06→19:54)
[2022-02-14] MEDS: lactulose 20gm/30ml cup PO SCH ×4 (01:14→16:50)
--- NOTE | 2022-02-14 01:17 | NUR ---
Accidently gave the 0200 vanco now, thinking it was 0200. Earlier does was given late at 2245 as not available from pharmacy. Called pharmacist to check if this would be detrimental to patient as only just over 2 hours in between. Pharmacist stated that it should be fine.
[2022-02-14 02:00] VITALS: BP 100/58
[2022-02-14 06:20] LABS: BASOPHILS # (AUTO) 0.1 X10'3 (0-0.2); BASOPHILS % (AUTO) 0.4 % (0-1); EOSINOPHILS # (AUTO) 0.1 X10'3 (0-0.9); EOSINOPHILS % (AUTO) 0.4 % (0-6); HEMATOCRIT 27.9 % (35.0-45.0); HEMOGLOBIN 9.3 g/dl (12.0-16.0); LYMPHOCYTES # (AUTO) 1.5 X10'3 (1.1-4.8); LYMPHOCYTES % (AUTO) 9.9 % (21-51); MEAN CORPUSCULAR HEMOGLOBIN 34.7 PG (27.0-31.0); MEAN CORPUSCULAR HGB CONC 33.2 g/dL (33.0-36.5); MEAN CORPUSCULAR VOLUME 104.5 FL (78-98); MEAN PLATELET VOLUME 9.1 FL (7.4-10.4); MONOCYTES % (AUTO) 6.5 % (2-12); NEUTROPHILS # (AUTO) 12.9 X10'3 (1.8-7.7); NEUTROPHILS % (AUTO) 82.8 % (42-75); PLATELET COUNT 326 X10'3 (140-440); RED BLOOD COUNT 2.67 X10'6 (4.20-5.60); RED CELL DISTRIBUTION WIDTH 18.6 % (11.5-14.5); WHITE BLOOD COUNT 15.5 X10'3 (4.5-11.0)
--- NOTE | 2022-02-14 06:40 | NUR ---
Problems reprioritized. Patient report given, questions answered & plan of care reviewed with Genesis BOLAND.
--- NOTE | 2022-02-14 06:40 | NUR ---
Patient in room PCU 3015. I have received report from MY BOLAND and had the opportunity to ask questions and assume patient care.
[2022-02-14 06:43] LABS: ALANINE AMINOTRANSFERASE 32 U/L (12-78); ALBUMIN 1.5 G/DL (3.4-5.0); ALBUMIN/GLOBULIN RATIO 0.4 (1.1-1.5); ALKALINE PHOSPHATASE 161 IU/L (46-116); ANION GAP 10 (8-16); ASPARTATE AMINO TRANSFERASE 111 U/L (10-37); BILIRUBIN,TOTAL 13.8 MG/DL (0.1-1.0); BLOOD UREA NITROGEN 24 MG/DL (7-18); BUN/CREATININE RATIO 26.4 (6.6-38.0); CALCIUM 8.1 MG/DL (8.5-10.1); CHLORIDE 105 MMOL/L (99-107); CREATININE 0.91 MG/DL (0.40-0.90); GLUCOSE 94 MG/DL (70-104); PHOSPHORUS 3.6 MG/DL (2.3-4.5); POTASSIUM 3.6 MMOL/L (3.5-5.1); SODIUM 142 MMOL/L (135-145); TOTAL CARBON DIOXIDE 26.8 MMOL/L (24-32); eGFR 65 ML/MIN
[2022-02-14] MEDS: furosemide 40mg/4ml inj IV SCH ×3 (08:00→20:00)
[2022-02-14] MEDS: propranolol 10mg tablet PO SCH ×5 (08:00→20:00)
[2022-02-14] MEDS: K and/or MAG REPLACEMENT MC SCH ×3 (08:00→20:16)
[2022-02-14] MEDS: nicotine 21mg patch - 24 hr TD SCH (08:28)
[2022-02-14] MEDS: spironolactone 25 MG tablet PO SCH (08:30)
[2022-02-14] MEDS: prednisone 10mg tablet PO SCH (08:34)
[2022-02-14] MEDS: ESCITALOPRAM OXALATE 5 MG TABLET PO SCH (08:34)
[2022-02-14] MEDS: thiamine 100mg tablet PO SCH (08:34)
[2022-02-14] MEDS: Ursodiol 300mg capsule PO SCH ×2 (08:34→19:53)
[2022-02-14] MEDS: magnesium Cl slow-release 64mg tablet PO PRN ×2 (08:34→19:54)
[2022-02-14] MEDS: folic acid 1mg tablet PO SCH (08:35)
[2022-02-14] MEDS: lactobacillus rhamnosus 10,000 MMU CELLS/CAPSULE PO SCH ×2 (08:35→19:53)
[2022-02-14] MEDS: multivitamins, therapeutics tablet PO SCH (08:35)
[2022-02-14] MEDS: lactose-reduced food (Ensure Enlive) - 237ml bottle PO SCH ×4 (08:37→20:00)
[2022-02-14] MEDS: HYDROcodone/acetaminophen 10/325mg tab PO PRN ×2 (08:47→15:45)
[2022-02-14 11:00] VITALS: BP 119/64
--- NOTE | 2022-02-14 11:14 | NUR ---
patient was seen by Dr karol English. Patient then found by security leaving building, patient returned to room and explained that she cannot leave until discharged by DR. DR Gonzalez aware will continue to monitor
[2022-02-14] MEDS ORDERED: magnesium 2GM in 50ml NS 50 ML IV PRN (17:25)
[2022-02-14] MEDS ORDERED: potassium CL 10mEq/100ml bag 100 ML IV PRN (17:25)
[2022-02-14] MEDS ORDERED: POTASSIUM BICARB 20meq eff tab 20 MEQ TABLET.EFF PO PRN (17:25)
[2022-02-14] MEDS ORDERED: magnesium 4gm in 100ml NS 100 ML IV PRN (17:25)
[2022-02-14 18:00] VITALS: BP 100/63
--- NOTE | 2022-02-14 18:20 | NUR ---
Patient in room PCU 3015. I have received report from Genesis BOLAND and had the opportunity to ask questions and assume patient care.
--- NOTE | 2022-02-14 18:48 | NUR ---
patient stayed in room tearful at times with regards prognosis. time spent with patient. report given to roxane BOLAND
[2022-02-14 20:05] VITALS: BP 93/58
--- NOTE | 2022-02-14 20:23 | NUR ---
Did not give the 2000 glycerna as a duplicate order as already had come up on the dinner tray earlier
[2022-02-14 22:00] VITALS: BP 111/63
[2022-02-14] MEDS: HYDROcodone/acetaminophen 5mg/325mg tablet PO PRN (22:47)
[2022-02-15 02:00] VITALS: BP 98/56
[2022-02-15] MEDS: vancomycin 125mg/5ml ORAL solution 5ml UD oral syringe PO SCH ×3 (02:14→13:21)
[2022-02-15 06:58] VITALS: BP 80/39
--- NOTE | 2022-02-15 06:59 | NUR ---
Patient in room PCU 3015. I have received report from Kayla BOLAND and had the opportunity to ask questions and assume patient care.
[2022-02-15] MEDS: folic acid 1mg tablet PO SCH (07:47)
[2022-02-15] MEDS: nicotine 21mg patch - 24 hr TD SCH (07:47)
[2022-02-15] MEDS: multivitamins, therapeutics tablet PO SCH (07:47)
[2022-02-15] MEDS: prednisone 10mg tablet PO SCH (07:48)
[2022-02-15] MEDS: LORazepam 1 MG tablet PO PRN ×4 (07:48→23:05)
[2022-02-15] MEDS: ESCITALOPRAM OXALATE 5 MG TABLET PO SCH (07:48)
--- NOTE | 2022-02-15 07:48 | NUR ---
Reassessment: Pt continues on Mechanical soft diet w/ slight decline in intake, avg 25% of meals and 45% of ONS TID. Overall meeting approximately 80% of est energy needs and 66% of est protein needs. LBM 02/11 receiving routine lactulose though pt has been refusing per documentation\. No change to recommendations at this time ,will continue to monitor. Recs: 1. Continue [facility] soft diet per OPERATOR COMMAND SUPPORT SYSTEMS recs, assist w/ meals 2. Ensure Enlive TID 3. Bowel care per MD 4. Weekly scaled wts Addendum: 02/15/22 at [address] Amended: Links added.
[2022-02-15] MEDS: lactobacillus rhamnosus 10,000 MMU CELLS/CAPSULE PO SCH ×2 (07:49→20:48)
[2022-02-15] MEDS: thiamine 100mg tablet PO SCH (07:49)
[2022-02-15] MEDS: lactulose 20gm/30ml cup PO SCH ×3 (07:52→16:00)
[2022-02-15] MEDS: furosemide 40mg/4ml inj IV SCH ×2 (07:53→20:48)
[2022-02-15] MEDS: propranolol 10mg tablet PO SCH ×3 (07:53→20:48)
[2022-02-15] MEDS: spironolactone 25 MG tablet PO SCH (07:53)
[2022-02-15] MEDS: K and/or MAG REPLACEMENT MC SCH ×4 (08:00→20:00)
[2022-02-15] MEDS: lactose-reduced food (Ensure Enlive) - 237ml bottle PO SCH ×2 (08:00→20:00)
[2022-02-15] MEDS: HYDROcodone/acetaminophen 10/325mg tab PO PRN ×3 (08:05→17:54)
[2022-02-15] MEDS: Ursodiol 300mg capsule PO SCH ×2 (08:05→20:48)
[2022-02-15 08:08] LABS: HEMATOCRIT 28.6 % (35.0-45.0); HEMOGLOBIN 9.5 g/dl (12.0-16.0); MEAN CORPUSCULAR HEMOGLOBIN 35.1 PG (27.0-31.0); MEAN CORPUSCULAR HGB CONC 33.1 g/dL (33.0-36.5); MEAN PLATELET VOLUME 9.9 FL (7.4-10.4); PLATELET COUNT 310 X10'3 (140-440); WHITE BLOOD COUNT 18.2 X10'3 (4.5-11.0)
[2022-02-15 08:29] LABS: ALANINE AMINOTRANSFERASE 32 U/L (12-78); ALBUMIN 1.6 G/DL (3.4-5.0); ALKALINE PHOSPHATASE 159 IU/L (46-116); ANION GAP 10 (8-16); ASPARTATE AMINO TRANSFERASE 112 U/L (10-37); BILIRUBIN,TOTAL 13.9 MG/DL (0.1-1.0); BLOOD UREA NITROGEN 22 MG/DL (7-18); BUN/CREATININE RATIO 26.8 (6.6-38.0); CALCIUM 8.2 MG/DL (8.5-10.1); CHLORIDE 105 MMOL/L (99-107); CREATININE 0.82 MG/DL (0.40-0.90); GLUCOSE 101 MG/DL (70-104); SODIUM 141 MMOL/L (135-145); TOTAL CARBON DIOXIDE 26.4 MMOL/L (24-32); eGFR 73 ML/MIN
[2022-02-15 08:32] LABS: ALBUMIN/GLOBULIN RATIO 0.5 (1.1-1.5); POTASSIUM 3.8 MMOL/L (3.5-5.1); TOTAL PROTEIN 5.1 G/DL (6.4-8.2)
[2022-02-15 08:37] LABS: MAGNESIUM 1.3 MG/DL (1.5-2.4)
[2022-02-15 09:57] LABS: TOTAL CELLS COUNTED 100
[2022-02-15 09:58] LABS: PLATELET ESTIMATE NORMAL
[2022-02-15 09:59] LABS: ANISOCYTOSIS 2+
[2022-02-15] MEDS: magnesium Cl slow-release 64mg tablet PO PRN ×2 (12:25→20:48)
[2022-02-15 15:00] VITALS: BP 100/60
--- NOTE | 2022-02-15 16:12 | NUR ---
patient up and about in room. still appears very sad and tearful with regards prognosis. seen by Dr flores . Mg 1.3 being replaced. Ativan given x3 for anxiety and Ulysses x2 for back pain. will continue to monitor
[2022-02-15 18:00] VITALS: BP 114/66
--- NOTE | 2022-02-15 18:32 | NUR ---
Problems reprioritized. Patient report given, questions answered & plan of care reviewed with nayan BOLAND.
[2022-02-15 20:49] VITALS: BP 109/65
[2022-02-15 22:00] VITALS: BP 108/60
[2022-02-15] MEDS: HYDROcodone/acetaminophen 5mg/325mg tablet PO PRN (22:57)
[2022-02-16] VITALS (7 sets, daily range): BP systolic 90–114; BP diastolic 54–66
[2022-02-16] MEDS: HYDROcodone/acetaminophen 10/325mg tab PO PRN (07:45)
[2022-02-16] MEDS: K and/or MAG REPLACEMENT MC SCH ×3 (07:46→20:00)
[2022-02-16] MEDS: folic acid 1mg tablet PO SCH (08:00)
[2022-02-16] MEDS: lactose-reduced food (Ensure Enlive) - 237ml bottle PO SCH ×2 (08:00→20:00)
[2022-02-16] MEDS: lactulose 20gm/30ml cup PO SCH ×3 (08:00→08:07)
[2022-02-16] MEDS: nicotine 21mg patch - 24 hr TD SCH (08:01)
[2022-02-16] MEDS: thiamine 100mg tablet PO SCH (08:03)
[2022-02-16] MEDS: lactobacillus rhamnosus 10,000 MMU CELLS/CAPSULE PO SCH ×2 (08:03→21:05)
[2022-02-16] MEDS: Ursodiol 300mg capsule PO SCH (08:03)
[2022-02-16] MEDS: magnesium Cl slow-release 64mg tablet PO PRN (08:03)
[2022-02-16] MEDS: prednisone 10mg tablet PO SCH (08:03)
[2022-02-16] MEDS: multivitamins, therapeutics tablet PO SCH (08:05)
[2022-02-16] MEDS: ESCITALOPRAM OXALATE 5 MG TABLET PO SCH (08:05)
[2022-02-16] MEDS: spironolactone 25 MG tablet PO SCH (08:05)
[2022-02-16] MEDS: propranolol 10mg tablet PO SCH ×2 (08:07→21:05)
[2022-02-16] MEDS: LORazepam 1 MG tablet PO PRN ×4 (08:34→22:20)
[2022-02-16] MEDS: HYDROcodone/acetaminophen 5mg/325mg tablet PO PRN ×3 (13:30→22:20)
[2022-02-16] MEDS: vancomycin 125mg/5ml ORAL solution 5ml UD oral syringe PO SCH ×3 (17:30→21:05)
[2022-02-16] MEDS: furosemide 40mg/4ml inj IV SCH (21:05)
[2022-02-17] VITALS (7 sets, daily range): BP systolic 94–120; BP diastolic 52–66
--- NOTE | 2022-02-17 01:24 | NUR ---
Pt refused lactulose. Education provided to pt.
[2022-02-17] MEDS: LORazepam 1 MG tablet PO PRN ×2 (02:43→15:15)
[2022-02-17] MEDS: HYDROcodone/acetaminophen 5mg/325mg tablet PO PRN ×3 (02:43→20:37)
[2022-02-17] MEDS: vancomycin 125mg/5ml ORAL solution 5ml UD oral syringe PO SCH ×4 (02:45→20:51)
--- NOTE | 2022-02-17 06:37 | NUR ---
Patient in room PCU 3015. I have received report from KRYSTIAN PETERSON, and had the opportunity to ask questions and assume patient care.
[2022-02-17] MEDS: K and/or MAG REPLACEMENT MC SCH ×4 (08:00→20:48)
[2022-02-17] MEDS: furosemide 40mg/4ml inj IV SCH ×2 (08:00→20:00)
[2022-02-17] MEDS: propranolol 10mg tablet PO SCH ×2 (08:00→20:00)
[2022-02-17 08:09] LABS: BASOPHILS # (AUTO) 0.2 X10'3 (0-0.2); BASOPHILS % (AUTO) 0.7 % (0-1); EOSINOPHILS % (AUTO) 0.1 % (0-6); HEMATOCRIT 30.6 % (35.0-45.0); HEMOGLOBIN 10.3 g/dl (12.0-16.0); LYMPHOCYTES # (AUTO) 1.6 X10'3 (1.1-4.8); LYMPHOCYTES % (AUTO) 7.2 % (21-51); MEAN CORPUSCULAR HEMOGLOBIN 35.6 PG (27.0-31.0); MEAN CORPUSCULAR HGB CONC 33.5 g/dL (33.0-36.5); MEAN CORPUSCULAR VOLUME 106.2 FL (78-98); MONOCYTES # (AUTO) 0.9 X10'3 (0-0.9); NEUTROPHILS # (AUTO) 19.7 X10'3 (1.8-7.7); PLATELET COUNT 319 X10'3 (140-440); RED BLOOD COUNT 2.88 X10'6 (4.20-5.60); RED CELL DISTRIBUTION WIDTH 18.7 % (11.5-14.5); WHITE BLOOD COUNT 22.3 X10'3 (4.5-11.0)
[2022-02-17] MEDS: spironolactone 25 MG tablet PO SCH (08:30)
[2022-02-17] MEDS: lactose-reduced food (Ensure Enlive) - 237ml bottle PO SCH ×2 (08:34→13:30)
[2022-02-17 08:40] LABS: ALANINE AMINOTRANSFERASE 43 U/L (12-78); ALBUMIN 1.7 G/DL (3.4-5.0); ALKALINE PHOSPHATASE 173 IU/L (46-116); ANION GAP 14 (8-16); BILIRUBIN,TOTAL 15.3 MG/DL (0.1-1.0); BLOOD UREA NITROGEN 23 MG/DL (7-18); CALCIUM 8.3 MG/DL (8.5-10.1); CHLORIDE 103 MMOL/L (99-107); MAGNESIUM 1.3 MG/DL (1.5-2.4); SODIUM 144 MMOL/L (135-145); TOTAL CARBON DIOXIDE 26.7 MMOL/L (24-32)
[2022-02-17 08:42] LABS: ALBUMIN/GLOBULIN RATIO 0.4 (1.1-1.5); ASPARTATE AMINO TRANSFERASE 149 U/L (10-37); BUN/CREATININE RATIO 25.8 (6.6-38.0); CREATININE 0.89 MG/DL (0.40-0.90); GLUCOSE 107 MG/DL (70-104); PHOSPHORUS 3.7 MG/DL (2.3-4.5); POTASSIUM 3.2 MMOL/L (3.5-5.1); TOTAL PROTEIN 5.5 G/DL (6.4-8.2); eGFR 67 ML/MIN
[2022-02-17] MEDS: thiamine 100mg tablet PO SCH (08:43)
[2022-02-17] MEDS: folic acid 1mg tablet PO SCH (08:43)
[2022-02-17] MEDS: multivitamins, therapeutics tablet PO SCH (08:43)
[2022-02-17] MEDS: lactobacillus rhamnosus 10,000 MMU CELLS/CAPSULE PO SCH ×2 (08:43→20:42)
[2022-02-17] MEDS: prednisone 10mg tablet PO SCH (08:44)
[2022-02-17] MEDS: nicotine 21mg patch - 24 hr TD SCH (08:45)
[2022-02-17] MEDS: ESCITALOPRAM OXALATE 5 MG TABLET PO SCH (08:46)
--- NOTE | 2022-02-17 08:54 | NUR ---
PAGE SENT Message: [id number], IMELDA SHELTON, BP 92/52, HELD LASIX 40MG, PROPRANOLOL 10MG, ALDACTONE 50MG. THANK YOU, LISA [id number]
[2022-02-17 09:08] LABS: ANISOCYTOSIS 2+; PLATELET ESTIMATE NORMAL; TARGET CELLS 1+
--- NOTE | 2022-02-17 10:12 | NUR ---
Reassessment: Pt with improvement in PO intake, documented with average 75% PO intake of five most recent meals, up from previous 25% PO intake. Poor documentation of ONS PO intake so unsure of ONS acceptance at this time. Current PO intake of meals is meeting estimated nutrient needs. LBM 02/16. No further nutrition intervention implemented at this time. Will continue to follow. Recommendations: 1. Continue EC7 diet per AGENCY APPOINTMENTS SUPERVISOR recs 2. Ensure Enlive BID 3. Bowel care per MD 4. Scaled weight this admit; subsequent weekly scaled wts Addendum: 02/17/22 at [address] Amended: Links added.
--- NOTE | 2022-02-17 12:08 | NUR ---
PAGE SENT PAGER ID: [phone] MESSAGE: [id number], MIKA SALEEM, PT HAS INCREASED O2 NEEDS - 15L REBREATHER MASK, RR 33. LUNGS ANT UPPER CLEAR, LOWER DIMINISHED. CXY? THANK YOU, AMELIE Addendum: 02/17/22 at 1254 by Amelie Townsend RN WRONG PT
[2022-02-17] MEDS: magnesium Cl slow-release 64mg tablet PO PRN (12:44)
[2022-02-17] MEDS: POTASSIUM BICARB 20meq eff tab 20 MEQ TABLET.EFF PO PRN ×2 (12:45→16:50)
[2022-02-17] MEDS: HYDROcodone/acetaminophen 10/325mg tab PO PRN (14:20)
--- NOTE | 2022-02-17 18:00 | NUR ---
Patient in room PCU 3015. I have received report from LISA BOLAND and had the opportunity to ask questions and assume patient care.
--- NOTE | 2022-02-17 18:40 | NUR ---
Problems reprioritized. Patient report given, questions answered & plan of care reviewed with KRYSTIAN FRANCO.
[2022-02-17] MEDS: Neutra Phos packet PO PRN (20:41)
[2022-02-17] MEDS: haloperidol 5mg tablet PO PRN (20:48)
[2022-02-18] MEDS: haloperidol 5mg tablet PO PRN (01:45)
[2022-02-18] MEDS: HYDROcodone/acetaminophen 10/325mg tab PO PRN ×3 (01:45→15:20)
[2022-02-18] MEDS: vancomycin 125mg/5ml ORAL solution 5ml UD oral syringe PO SCH ×3 (01:45→16:03)
[2022-02-18] MEDS: LORazepam 1 MG tablet PO PRN ×3 (01:45→16:37)
[2022-02-18 02:00] VITALS: BP 104/60
[2022-02-18 06:00] VITALS: BP 99/51
--- NOTE | 2022-02-18 06:40 | NUR ---
Patient in room PCU 3015. I have received report from KRYSTIAN Wilcox and had the opportunity to ask questions and assume patient care.
--- NOTE | 2022-02-18 06:58 | NUR ---
Problems reprioritized. Patient report given, questions answered & plan of care reviewed with Pierre RN.
[2022-02-18 07:25] LABS: BASOPHILS # (AUTO) 0.1 X10'3 (0-0.2); BASOPHILS % (AUTO) 0.6 % (0-1); EOSINOPHILS % (AUTO) 0.1 % (0-6); HEMATOCRIT 26.2 % (35.0-45.0); LYMPHOCYTES # (AUTO) 1.4 X10'3 (1.1-4.8); LYMPHOCYTES % (AUTO) 5.9 % (21-51); MEAN CORPUSCULAR HEMOGLOBIN 36.9 PG (27.0-31.0); MEAN CORPUSCULAR HGB CONC 34.2 g/dL (33.0-36.5); MEAN CORPUSCULAR VOLUME 107.9 FL (78-98); MEAN PLATELET VOLUME 9.8 FL (7.4-10.4); MONOCYTES # (AUTO) 1.1 X10'3 (0-0.9); MONOCYTES % (AUTO) 4.8 % (2-12); NEUTROPHILS # (AUTO) 20.8 X10'3 (1.8-7.7); NEUTROPHILS % (AUTO) 88.6 % (42-75); PLATELET COUNT 287 X10'3 (140-440); RED BLOOD COUNT 2.43 X10'6 (4.20-5.60); RED CELL DISTRIBUTION WIDTH 18.8 % (11.5-14.5); WHITE BLOOD COUNT 23.4 X10'3 (4.5-11.0)
[2022-02-18 07:31] LABS: ALANINE AMINOTRANSFERASE 46 U/L (12-78); ALBUMIN 1.5 G/DL (3.4-5.0); ALKALINE PHOSPHATASE 155 IU/L (46-116); ANION GAP 12 (8-16); ASPARTATE AMINO TRANSFERASE 136 U/L (10-37); BILIRUBIN,TOTAL 13.8 MG/DL (0.1-1.0); BLOOD UREA NITROGEN 22 MG/DL (7-18); CALCIUM 7.9 MG/DL (8.5-10.1); CHLORIDE 104 MMOL/L (99-107); CREATININE 0.71 MG/DL (0.40-0.90); GLUCOSE 117 MG/DL (70-104); MAGNESIUM 1.3 MG/DL (1.5-2.4); SODIUM 145 MMOL/L (135-145); TOTAL CARBON DIOXIDE 29.1 MMOL/L (24-32); eGFR 86 ML/MIN
[2022-02-18 07:32] LABS: ALBUMIN/GLOBULIN RATIO 0.4 (1.1-1.5); PHOSPHORUS 2.9 MG/DL (2.3-4.5); POTASSIUM 3.8 MMOL/L (3.5-5.1)
[2022-02-18] MEDS: lactose-reduced food (Ensure Enlive) - 237ml bottle PO SCH (08:00)
[2022-02-18] MEDS: furosemide 40mg/4ml inj IV SCH (08:00)
[2022-02-18] MEDS: propranolol 10mg tablet PO SCH (08:00)
[2022-02-18] MEDS: spironolactone 25 MG tablet PO SCH (08:30)
[2022-02-18 10:00] VITALS: BP 102/59
[2022-02-18] MEDS: K and/or MAG REPLACEMENT MC SCH (10:24)
[2022-02-18] MEDS: nicotine 21mg patch - 24 hr TD SCH (10:30)
[2022-02-18] MEDS: thiamine 100mg tablet PO SCH (10:30)
[2022-02-18] MEDS: lactobacillus rhamnosus 10,000 MMU CELLS/CAPSULE PO SCH (10:30)
[2022-02-18] MEDS: multivitamins, therapeutics tablet PO SCH (10:31)
[2022-02-18] MEDS: folic acid 1mg tablet PO SCH (10:31)
[2022-02-18] MEDS: ESCITALOPRAM OXALATE 5 MG TABLET PO SCH (10:31)
[2022-02-18] MEDS: prednisone 10mg tablet PO SCH (10:31)
[2022-02-18] MEDS ORDERED: POTASSIUM BICARB 20meq eff tab 20 MEQ TABLET.EFF PO PRN ×2 (10:45)
[2022-02-18] MEDS ORDERED: magnesium 2GM in 50ml NS 50 ML IV PRN (10:45)
[2022-02-18] MEDS ORDERED: potassium CL 10mEq/100ml bag 100 ML IV PRN (10:45)
[2022-02-18] MEDS ORDERED: magnesium 4gm in 100ml NS 100 ML IV PRN (10:45)
[2022-02-18] MEDS: magnesium Cl slow-release 64mg tablet PO PRN ×2 (11:12→16:37)
[2022-02-18 14:00] VITALS: BP 123/66
[2022-02-18] MEDS ORDERED: THIA50TA10 PO (14:35)
[2022-02-18] MEDS ORDERED: FOLI1TAB27 PO (14:35)
[2022-02-18] MEDS ORDERED: SPIR25TA5 PO (14:35)
[2022-02-18] MEDS ORDERED: MULT-25 PO (14:35)
[2022-02-18] MEDS ORDERED: PRED10TA PO (14:35)
[2022-02-18] MEDS ORDERED: PROP10TA10 PO (14:35)
[2022-02-18] MEDS ORDERED: VANC125C5 PO (14:35)
[2022-02-18] MEDS ORDERED: FURO-150 PO (14:35)
[2022-02-18] MEDS ORDERED: LACT-237 PO (14:35)
[2022-02-18] MEDS ORDERED: LACT1CAP26 PO (14:35)
[2022-02-18] MEDS ORDERED: NICO-687 TD (14:35)
[2022-02-18] MEDS ORDERED: HYDR-3965 PO (17:17)
[2022-02-18] MEDS ORDERED: LORA-269 PO (17:17)
--- NOTE | 2022-02-18 17:35 | NUR ---
DC inst provided to pt. IV DC'd, tip intact. All belongings sent w/pt. WC to vehicle.
== END 2022-02-18 17:30 | disposition home or self-care (01) | DRG 720 ==
LOC: ER 15:40 → ED HOLD 19:08 → EDBEDREQ 20:43 → PCU 3S 22:15
PROVIDERS: ADMIT Family Medicine; ATTEND Family Medicine
DX: A41.4 Sepsis due to anaerobes (principal); K72.00 Acute and subacute hepatic failure without coma; E87.2 Acidosis; E43 Unspecified severe protein-calorie malnutrition; K72.10 Chronic hepatic failure without coma; K70.31 Alcoholic cirrhosis of liver with ascites; A04.72 Enterocolitis due to Clostridium difficile, not specified as recurrent; R45.851 Suicidal ideations; E83.39 Other disorders of phosphorus metabolism; Z20.822 Contact with and (suspected) exposure to COVID-19; K92.2 Gastrointestinal hemorrhage, unspecified; K70.11 Alcoholic hepatitis with ascites; R65.20 Severe sepsis without septic shock; F10.220 Alcohol dependence with intoxication, uncomplicated; F32.A Depression, unspecified; F41.9 Anxiety disorder, unspecified; E83.42 Hypomagnesemia; E87.6 Hypokalemia; G89.29 Other chronic pain; T50.1X5A Adverse effect of loop [high-ceiling] diuretics, initial encounter; Y90.8 Blood alcohol level of 240 mg/100 ml or more; Z68.30 Body mass index [BMI] 30.0-30.9, adult; Z72.0 Tobacco use; Z71.6 Tobacco abuse counseling; Z79.899 Other long term (current) drug therapy; Z91.19 Patient's noncompliance with other medical treatment and regimen
CPT/HCPCS: 36415; 74018; 74176; 76700; 76705; 80053; 80061; 80305; 80320; 81001; 82140; 82150; 82272; 82948; 83036; 83605; 83735; 84100; 84145; 84443; 85007; 85008; 85025; 85610; 86703; 86705; 86706; 86709; 86803; 87040; 87045; 87046; 87081; 87324; 87340; 87449; 89055; 92508; 92616; 94664; 94668; 94760; 96365; 96375; 97116; 97162; 97530; 99285; A4353; A4615; A6250; G0378; J0696; J1644; J1940; J2060; J2270; J2405; J2543; J3370; J3411; J3475; J3480; J3490; J7030; J7040; J7042; J7512; Q9963; Q9967

== ENCOUNTER 2022-02-23 10:26 | Emergency (ER) | payer MEDICAID ==
[~2022-02-23] VITALS: Ht 160 cm; Wt 84.1 kg
[~2022-02-23 10:26] MED LIST changes: -BENZ-16 PO; +ESCI5TAB PO; +FOLI1TAB27 PO; +FURO-150 PO; +HYDR-3965 PO; -IBUP-1985 PO; -IBUP-1986 PO; +LACT-237 PO; +LACT1CAP26 PO; +LORA-269 PO; +MULT-25 PO; +NICO-687 TD; -PANT-47 PO; +PRED10TA PO; +PROP10TA10 PO; +SPIR25TA5 PO; +THIA50TA10 PO; +VANC125C5 PO
[2022-02-23 11:25] LABS: BASOPHILS # (AUTO) 0.2 X10'3 (0-0.2); BASOPHILS % (AUTO) 0.8 % (0-1); EOSINOPHILS % (AUTO) 0 % (0-6); HEMATOCRIT 33.9 % (35.0-45.0); HEMOGLOBIN 11.4 g/dl (12.0-16.0); LYMPHOCYTES # (AUTO) 1.9 X10'3 (1.1-4.8); LYMPHOCYTES % (AUTO) 6.1 % (21-51); MEAN CORPUSCULAR HEMOGLOBIN 35.4 PG (27.0-31.0); MEAN CORPUSCULAR HGB CONC 33.5 g/dL (33.0-36.5); MEAN CORPUSCULAR VOLUME 105.5 FL (78-98); MEAN PLATELET VOLUME 9.4 FL (7.4-10.4); MONOCYTES # (AUTO) 1.2 X10'3 (0-0.9); MONOCYTES % (AUTO) 3.9 % (2-12); NEUTROPHILS # (AUTO) 27.6 X10'3 (1.8-7.7); NEUTROPHILS % (AUTO) 89.2 % (42-75); PLATELET COUNT 333 X10'3 (140-440); RED BLOOD COUNT 3.21 X10'6 (4.20-5.60); RED CELL DISTRIBUTION WIDTH 17.8 % (11.5-14.5)
[2022-02-23 11:36] LABS: ALANINE AMINOTRANSFERASE 90 U/L (12-78); ALBUMIN 1.8 G/DL (3.4-5.0); ALKALINE PHOSPHATASE 223 IU/L (46-116); ANION GAP 10 (8-16); BILIRUBIN,TOTAL 19.7 MG/DL (0.1-1.0); BLOOD UREA NITROGEN 27 MG/DL (7-18); CALCIUM 8.6 MG/DL (8.5-10.1); CHLORIDE 104 MMOL/L (99-107); CREATININE 1.04 MG/DL (0.40-0.90); LIPASE 148 U/L (73-393); SODIUM 139 MMOL/L (135-145); TOTAL CARBON DIOXIDE 25.2 MMOL/L (24-32); eGFR 56 ML/MIN
[2022-02-23 11:48] LABS: PLATELET ESTIMATE NORMAL; TOTAL CELLS COUNTED 100
[2022-02-23 11:49] LABS: ANISOCYTOSIS 1+; TARGET CELLS FEW
[2022-02-23 12:00] LABS: ASPARTATE AMINO TRANSFERASE 154 U/L (10-37)
[2022-02-23 12:01] LABS: ALBUMIN/GLOBULIN RATIO 0.4 (1.1-1.5); GLUCOSE 148 MG/DL (70-104); TOTAL PROTEIN 6.1 G/DL (6.4-8.2)
[2022-02-23 12:14] VITALS: BP 113/53
[2022-02-23 12:27] LABS: POTASSIUM 3.8 MMOL/L (3.5-5.1)
[2022-02-23 19:18] LABS: CLARITY,URINE Clear (Clear); COLOR,URINE Orange (Yellow); UA COLLECTION TYPE CLN CATCH MIDSTREAM
[2022-02-23 19:25] LABS: BACTERIA,URINE 1+ /HPF (Neg); MUCUS STRANDS MANY /LPF (Neg); RBC,URINE 0-2 /HPF (0-2); SQUAMOUS EPITHELIAL CELL,UR MANY /LPF (FEW); WBC,URINE NONE SEEN /HPF (0-4)
[2022-02-23] MEDS ORDERED: LORA-269 PO (20:29)
== END 2022-02-23 13:01 | disposition home or self-care (01) ==
LOC: ER 10:26
DX: K64.4 Residual hemorrhoidal skin tags (principal); K70.9 Alcoholic liver disease, unspecified; F10.20 Alcohol dependence, uncomplicated; G89.29 Other chronic pain; F32.A Depression, unspecified; Z98.890 Other specified postprocedural states; Z72.89 Other problems related to lifestyle; Z79.2 Long term (current) use of antibiotics; Z79.899 Other long term (current) drug therapy; Y90.9 Presence of alcohol in blood, level not specified
CPT/HCPCS: 80053; 81001; 83690; 85007; 85025; 99283

== ENCOUNTER 2022-02-23 16:18 | Emergency (ER) | payer MEDICAID ==
[~2022-02-23] VITALS: Ht 160 cm; Wt 84.1 kg
[2022-02-23] MEDS ORDERED: LORazepam 1 MG tablet PO ONE (20:25)
[2022-02-23] MEDS ORDERED: LORA-269 PO (20:29)
[2022-02-23 20:49] VITALS: BP 107/60
== END 2022-02-23 20:53 | disposition home or self-care (01) ==
LOC: ER 16:19
DX: K72.10 Chronic hepatic failure without coma (principal); D72.829 Elevated white blood cell count, unspecified; K92.1 Melena; R10.84 Generalized abdominal pain; G89.29 Other chronic pain; F32.A Depression, unspecified; Z98.890 Other specified postprocedural states; Z72.89 Other problems related to lifestyle; Z79.899 Other long term (current) drug therapy
CPT/HCPCS: 99284

== ENCOUNTER 2022-03-14 11:47 | Inpatient (IN) | payer MEDICAID ==
[~2022-03-14] VITALS: Ht 167.6 cm; Wt 84.1 kg
[~2022-03-14 11:47] MED LIST changes: -VANC125C5 PO
[2022-03-14] MEDS ORDERED: CefTRIAXone 2gm/D5W 50ml BAG 50 ML IV ONE (11:55)
[2022-03-14] MEDS ORDERED: normal saline 1000ML IV soln IVB ONE ×2 (11:55→14:45)
--- NOTE | 2022-03-14 12:25 | NUR ---
taken to ct
[2022-03-14 12:27] LABS: BASOPHILS # (AUTO) 0.1 X10'3 (0-0.2); BASOPHILS % (AUTO) 0.2 % (0-1); EOSINOPHILS % (AUTO) 0.2 % (0-6); HEMATOCRIT 32.8 % (35.0-45.0); HEMOGLOBIN 10.9 g/dl (12.0-16.0); LYMPHOCYTES # (AUTO) 0.9 X10'3 (1.1-4.8); MEAN CORPUSCULAR HEMOGLOBIN 35.2 PG (27.0-31.0); MEAN CORPUSCULAR HGB CONC 33.4 g/dL (33.0-36.5); MEAN CORPUSCULAR VOLUME 105.2 FL (78-98); MEAN PLATELET VOLUME 9.6 FL (7.4-10.4); MONOCYTES # (AUTO) 1.5 X10'3 (0-0.9); MONOCYTES % (AUTO) 6.5 % (2-12); NEUTROPHILS # (AUTO) 20.8 X10'3 (1.8-7.7); NEUTROPHILS % (AUTO) 89.1 % (42-75); PLATELET COUNT 158 X10'3 (140-440); RED BLOOD COUNT 3.11 X10'6 (4.20-5.60); RED CELL DISTRIBUTION WIDTH 15.2 % (11.5-14.5); WHITE BLOOD COUNT 23.4 X10'3 (4.5-11.0)
[2022-03-14 12:49] LABS: ALANINE AMINOTRANSFERASE 145 U/L (12-78); ALBUMIN 1.5 G/DL (3.4-5.0); ALKALINE PHOSPHATASE 205 IU/L (46-116); ANION GAP 14 (8-16); BILIRUBIN,TOTAL 21.1 MG/DL (0.1-1.0); BLOOD UREA NITROGEN 56 MG/DL (7-18); CALCIUM 7.9 MG/DL (8.5-10.1); CHLORIDE 101 MMOL/L (99-107); MAGNESIUM 1.3 MG/DL (1.5-2.4); SODIUM 135 MMOL/L (135-145)
--- NOTE | 2022-03-14 12:56 | NUR ---
patient reports no other complaints at this time and advised of need for urine collection
[2022-03-14 13:04] LABS: TOTAL CELLS COUNTED 100
[2022-03-14 13:05] LABS: ASPARTATE AMINO TRANSFERASE 506 U/L (10-37); PLATELET ESTIMATE NORMAL
[2022-03-14 13:06] LABS: ALBUMIN/GLOBULIN RATIO 0.4 (1.1-1.5); BUN/CREATININE RATIO 20.9 (6.6-38.0); CREATININE 2.68 MG/DL (0.40-0.90); GLUCOSE 112 MG/DL (70-104); TOTAL PROTEIN 5.7 G/DL (6.4-8.2); eGFR 19 ML/MIN
[2022-03-14 13:09] LABS: LACTIC SEPSIS 2.7 MMOL/L (0.4-2.0)
[2022-03-14 13:25] LABS: ETHANOL < 0.010 GM/DL (0.0-0.010)
[2022-03-14 13:37] LABS: AMMONIA < 10 UMOL/L (11-32)
[2022-03-14 13:38] LABS: POTASSIUM 4.6 MMOL/L (3.5-5.1)
--- NOTE | 2022-03-14 14:50 | NUR ---
patient used restroom at bedside, no urine. only had a bm
--- NOTE | 2022-03-14 14:58 | NUR ---
icu physician at bedside for eval
[2022-03-14] MEDS ORDERED: magnesium hydroxide 30ml (MOM) UD suspension PO PRN (15:45)
[2022-03-14] MEDS ORDERED: mag hydrox/Alum hydrox/simeth 30ml oral suspension PO PRN (15:45)
[2022-03-14] MEDS ORDERED: HYDROmorphone/PF 0.2 MG/ML SYRINGE IV PRN (15:45)
[2022-03-14] MEDS ORDERED: HYDROmorphone inj. 0.5 MG/0.5 ML DISP.SYRIN IV PRN (15:45)
[2022-03-14] MEDS ORDERED: ondansetron/PF 4mg/2ml inj IV PRN (15:45)
[2022-03-14] MEDS ORDERED: ESCI20TA39 PO (15:54)
[2022-03-14] MEDS ORDERED: PRED10TA23 PO (16:01)
[2022-03-14] MEDS ORDERED: SPIR25TA5 PO (16:06)
[2022-03-14] MEDS ORDERED: MULT-1085 PO (16:06)
[2022-03-14] MEDS ORDERED: PROP10TA10 PO (16:06)
[2022-03-14] MEDS ORDERED: LORA-269 PO (16:06)
[2022-03-14] MEDS ORDERED: NICO-687 TOP (16:06)
[2022-03-14] MEDS ORDERED: THIA50TA10 PO (16:06)
[2022-03-14] MEDS ORDERED: PRED5TAB PO (16:06)
--- NOTE | 2022-03-14 16:08 | NUR ---
patient gave daughters number [phone] with no answer.
[2022-03-14] MEDS ORDERED: LACT1CAP26 PO (16:09)
[2022-03-14] MEDS ORDERED: OXYC5TAB2 PO (16:09)
[2022-03-14] MEDS ORDERED: NALO4SPR3 NS (16:09)
[2022-03-14] MEDS ORDERED: FURO-150 PO (16:12)
[2022-03-14] MEDS ORDERED: FOLI1TAB27 PO (16:12)
[2022-03-14] MEDS: normal saline 1000ml 1,000 ML IV SCH (16:15)
[2022-03-14] MEDS ORDERED: NALOXONE HCL NS PRN (16:15)
--- NOTE | 2022-03-14 16:23 | NUR ---
correct daughter number
--- NOTE | 2022-03-14 16:29 | NUR ---
Ellie chinchilla in [facility] - 03/14/22 at 1644 by MARTHA patient used bed carr at this time.
[2022-03-14] MEDS: docusate sod 100mg capsule PO SCH (21:34)
[2022-03-14] MEDS: oxyCODONE IR 5mg (immed. release) tablet PO PRN (21:34)
[2022-03-14] MEDS: LORazepam 1 MG tablet PO SCH (21:34)
[2022-03-14 21:48] LABS: UA COLLECTION TYPE OTHER
[2022-03-14 21:49] LABS: CLARITY,URINE CLOUDY (Clear); COLOR,URINE Dark Yellow (Yellow)
[2022-03-14 21:54] LABS: AMORPHOUS URATES 1+; BACTERIA,URINE FEW /HPF (Neg); RBC,URINE 0-2 /HPF (0-2); SQUAMOUS EPITHELIAL CELL,UR MODERATE /LPF (FEW); WBC,URINE 0-4 /HPF (0-4)
[2022-03-14 21:55] LABS: FINE GRANULAR CAST 0-3 /LPF (NEGATIVE)
[2022-03-14 21:59] LABS: URINE AMPHETAMINE SCREEN NEGATIVE (Neg); URINE BARBITUATE SCREEN NEGATIVE (Neg); URINE BENZODIAZEPINES SCREEN NEGATIVE (Neg); URINE CANNABINOID SCREEN NEGATIVE (Neg); URINE COCAINE SCREEN NEGATIVE (Neg); URINE METHADONE SCREEN NEGATIVE (Neg); URINE OPIATE SCREEN NEGATIVE (Neg); URINE PHENCYCLIDINE SCREEN NEGATIVE (Neg)
--- NOTE | 2022-03-14 23:21 | NUR ---
report called to floor rn will. pt tx to room 6050
[2022-03-14 23:30] VITALS: BP 96/50
[2022-03-15] VITALS (8 sets, daily range): BP systolic 91–101; BP diastolic 43–59
[2022-03-15] MEDS: normal saline 1000ml 1,000 ML IV SCH ×2 (01:45→11:45)
[2022-03-15 06:21] LABS: BASOPHILS # (AUTO) 0.1 X10'3 (0-0.2); BASOPHILS % (AUTO) 0.5 % (0-1); EOSINOPHILS # (AUTO) 0.1 X10'3 (0-0.9); EOSINOPHILS % (AUTO) 0.3 % (0-6); HEMATOCRIT 29.6 % (35.0-45.0); HEMOGLOBIN 10.2 g/dl (12.0-16.0); LYMPHOCYTES # (AUTO) 3.2 X10'3 (1.1-4.8); LYMPHOCYTES % (AUTO) 14.8 % (21-51); MEAN CORPUSCULAR HEMOGLOBIN 35.6 PG (27.0-31.0); MEAN CORPUSCULAR HGB CONC 34.6 g/dL (33.0-36.5); MEAN CORPUSCULAR VOLUME 103.1 FL (78-98); MEAN PLATELET VOLUME 10.2 FL (7.4-10.4); MONOCYTES # (AUTO) 1.3 X10'3 (0-0.9); MONOCYTES % (AUTO) 6.3 % (2-12); NEUTROPHILS # (AUTO) 16.8 X10'3 (1.8-7.7); NEUTROPHILS % (AUTO) 78.1 % (42-75); PLATELET COUNT 132 X10'3 (140-440); RED BLOOD COUNT 2.87 X10'6 (4.20-5.60); WHITE BLOOD COUNT 21.4 X10'3 (4.5-11.0)
[2022-03-15 06:36] LABS: ALANINE AMINOTRANSFERASE 110 U/L (12-78); ALBUMIN 1.3 G/DL (3.4-5.0); ALKALINE PHOSPHATASE 188 IU/L (46-116); ANION GAP 12 (8-16); BILIRUBIN,TOTAL 19.2 MG/DL (0.1-1.0); BLOOD UREA NITROGEN 55 MG/DL (7-18); CALCIUM 7.6 MG/DL (8.5-10.1); CHLORIDE 106 MMOL/L (99-107); SODIUM 138 MMOL/L (135-145); TOTAL CARBON DIOXIDE 20.3 MMOL/L (24-32)
--- NOTE | 2022-03-15 06:42 | NUR ---
Patient in room PCU 3012. I have received report from KRYSTIAN Mckeon and had the opportunity to ask questions and assume patient care.
[2022-03-15 06:54] LABS: ALBUMIN/GLOBULIN RATIO 0.4 (1.1-1.5); ASPARTATE AMINO TRANSFERASE 260 U/L (10-37); BUN/CREATININE RATIO 22.8 (6.6-38.0); CREATININE 2.41 MG/DL (0.40-0.90); GLUCOSE 90 MG/DL (70-104); POTASSIUM 3.3 MMOL/L (3.5-5.1); TOTAL PROTEIN 4.6 G/DL (6.4-8.2); eGFR 21 ML/MIN
[2022-03-15] MEDS: spironolactone 25 MG tablet PO SCH (07:58)
[2022-03-15] MEDS: folic acid 1mg tablet PO SCH (08:02)
[2022-03-15] MEDS: ESCITALOPRAM OXALATE 5 MG TABLET PO SCH (08:02)
[2022-03-15] MEDS: LORazepam 1 MG tablet PO SCH ×3 (08:03→21:22)
[2022-03-15] MEDS: docusate sod 100mg capsule PO SCH ×2 (08:03→20:00)
[2022-03-15] MEDS: nicotine 21mg patch - 24 hr TD SCH (08:03)
[2022-03-15] MEDS: multivitamins, therapeutics tablet PO SCH (08:03)
[2022-03-15] MEDS: CefTRIAXone/D5W-Rocephin 1gm 50 ML IV SCH (08:03)
[2022-03-15] MEDS: thiamine 100mg tablet PO SCH (08:08)
[2022-03-15] MEDS ORDERED: LIDOcaine 1%/PF 5ML 10 MG/ML VIAL ONE (10:52)
[2022-03-15] MEDS ORDERED: albumin (human) 25% 100 ML IV solution IV ONE (11:20)
[2022-03-15 12:10] LABS: GLUCOSE,BODY FLUID 111 MG/DL; LDH,BODY FLUID 45 U/L
[2022-03-15 12:12] LABS: ALBUMIN,BODY FLUID < 0.6 G/DL; TOTAL PROTEIN,BODY FLUID < 2.0 G/DL
[2022-03-15 13:24] LABS: LYMPHOCYTES,BODY FLUID 61 %; MONOCYTES,BODY FLUID 34 %; NEUTROPHILS,BODY FLUID 5 %
[2022-03-15 13:25] LABS: BF MESOTHELIAL CELLS FEW; BF RBC COUNT 54 /CU MM; BF WBC COUNT 32 /CU MM (0-1000); BFAPPEAR CLEAR; BFCOLOR YELLOW; BFVOLUME 43 ML
--- NOTE | 2022-03-15 15:40 | NUR ---
While responding to an alarming IV, pt was found sitting cross legged on the floor. Pt has no visible or reported injuries. IV stretched but intact. Pt reports she was getting up to go to the bathroom. Pt had not used her call light and removed her Tabs unit from her gown. Pt had previously been using her call light appropriately. Pt stood with assist of 1 and returned to bed. VS stable and consistent for pt. No report of dizziness or lightheadedness. Dr Matthews was paged to notify. Tabs unit reapplied to avoid removal and side rails up x2. Frequent checks continuing.
--- NOTE | 2022-03-15 18:38 | NUR ---
Problems reprioritized. Patient report given, questions answered & plan of care reviewed with KRYSTIAN Mckeon.
[2022-03-16 06:00] VITALS: BP 98/49
[2022-03-16 06:09] LABS: BASOPHILS % (AUTO) 0.2 % (0-1); EOSINOPHILS # (AUTO) 0.1 X10'3 (0-0.9); EOSINOPHILS % (AUTO) 0.3 % (0-6); HEMATOCRIT 29.5 % (35.0-45.0); HEMOGLOBIN 10.3 g/dl (12.0-16.0); LYMPHOCYTES # (AUTO) 1.1 X10'3 (1.1-4.8); LYMPHOCYTES % (AUTO) 6.6 % (21-51); MEAN CORPUSCULAR HEMOGLOBIN 36.2 PG (27.0-31.0); MEAN CORPUSCULAR VOLUME 103.5 FL (78-98); MEAN PLATELET VOLUME 9.7 FL (7.4-10.4); MONOCYTES # (AUTO) 1.2 X10'3 (0-0.9); NEUTROPHILS # (AUTO) 14.8 X10'3 (1.8-7.7); NEUTROPHILS % (AUTO) 85.9 % (42-75); PLATELET COUNT 131 X10'3 (140-440); RED BLOOD COUNT 2.85 X10'6 (4.20-5.60); RED CELL DISTRIBUTION WIDTH 15.2 % (11.5-14.5); WHITE BLOOD COUNT 17.3 X10'3 (4.5-11.0)
[2022-03-16] MEDS: normal saline 1000ml 1,000 ML IV SCH (06:14)
[2022-03-16 06:24] LABS: ALANINE AMINOTRANSFERASE 91 U/L (12-78); ALBUMIN 1.6 G/DL (3.4-5.0); ALKALINE PHOSPHATASE 183 IU/L (46-116); ANION GAP 12 (8-16); BILIRUBIN,TOTAL 20.7 MG/DL (0.1-1.0); BLOOD UREA NITROGEN 44 MG/DL (7-18); BUN/CREATININE RATIO 23.9 (6.6-38.0); CALCIUM 7.5 MG/DL (8.5-10.1); CHLORIDE 105 MMOL/L (99-107); CREATININE 1.84 MG/DL (0.40-0.90); SODIUM 137 MMOL/L (135-145); TOTAL CARBON DIOXIDE 19.7 MMOL/L (24-32); eGFR 29 ML/MIN
[2022-03-16 06:32] LABS: ALBUMIN/GLOBULIN RATIO 0.6 (1.1-1.5); ASPARTATE AMINO TRANSFERASE 188 U/L (10-37); GLUCOSE 115 MG/DL (70-104); TOTAL PROTEIN 4.4 G/DL (6.4-8.2)
[2022-03-16 06:39] LABS: POTASSIUM 2.9 MMOL/L (3.5-5.1)
--- NOTE | 2022-03-16 07:08 | NUR ---
Sent to Dr. Matthews: [id number] Jessica: potassium is 2.9. Orders? Thank you. Jhoana BOLAND [phone]
[2022-03-16] MEDS: spironolactone 25 MG tablet PO SCH (08:00)
[2022-03-16] MEDS: nicotine 21mg patch - 24 hr TD SCH (08:13)
[2022-03-16] MEDS: thiamine 100mg tablet PO SCH (08:13)
[2022-03-16] MEDS: folic acid 1mg tablet PO SCH (08:14)
[2022-03-16] MEDS: ESCITALOPRAM OXALATE 5 MG TABLET PO SCH (08:15)
[2022-03-16] MEDS: LORazepam 1 MG tablet PO SCH ×3 (08:15→21:27)
[2022-03-16] MEDS: docusate sod 100mg capsule PO SCH ×2 (08:15→20:00)
[2022-03-16] MEDS: multivitamins, therapeutics tablet PO SCH (08:22)
[2022-03-16] MEDS: CefTRIAXone/D5W-Rocephin 1gm 50 ML IV SCH (08:23)
[2022-03-16] MEDS: oxyCODONE IR 5mg (immed. release) tablet PO PRN ×3 (08:23→22:27)
[2022-03-16] MEDS ORDERED: potassium CL 10mEq/100ml bag 100 ML IV PRN (08:45)
[2022-03-16] MEDS ORDERED: POTASSIUM BICARB 20meq eff tab 20 MEQ TABLET.EFF PO PRN (08:45)
[2022-03-16] MEDS ORDERED: magnesium 4gm in 100ml NS 100 ML IV PRN (08:45)
[2022-03-16] MEDS ORDERED: magnesium 2GM in 50ml NS 50 ML IV PRN (08:45)
[2022-03-16] MEDS ORDERED: magnesium Cl slow-release 64mg tablet PO PRN (08:45)
[2022-03-16 11:00] VITALS: BP 98/55
[2022-03-16] MEDS: POTASSIUM BICARB 20meq eff tab 20 MEQ TABLET.EFF PO PRN ×2 (12:37→16:37)
[2022-03-16 15:00] VITALS: BP 108/47
[2022-03-16 17:20] VITALS: BP 121/67
--- NOTE | 2022-03-16 17:25 | NUR ---
Sent to Dr. Matthews: [id number] Jessica: pt tried to get up from bsc and fell. bp 121/67, O2 93% on RA, HR 96. Pt states back hurts, which is normal for her today. Any new orders? Jhoana BOLAND [phone].
[2022-03-16 18:00] VITALS: BP 113/62
[2022-03-16] MEDS: K and/or MAG REPLACEMENT MC SCH (20:00)
[2022-03-16 22:00] VITALS: BP 98/69
[2022-03-17 02:00] VITALS: BP 111/34
[2022-03-17] MEDS: normal saline 1000ml 1,000 ML IV SCH (02:14)
[2022-03-17 06:00] VITALS: BP 109/44
[2022-03-17 06:28] LABS: BASOPHILS # (AUTO) 0.1 X10'3 (0-0.2); BASOPHILS % (AUTO) 0.4 % (0-1); EOSINOPHILS # (AUTO) 0.1 X10'3 (0-0.9); EOSINOPHILS % (AUTO) 0.5 % (0-6); HEMATOCRIT 30.7 % (35.0-45.0); HEMOGLOBIN 10.5 g/dl (12.0-16.0); LYMPHOCYTES # (AUTO) 1.4 X10'3 (1.1-4.8); LYMPHOCYTES % (AUTO) 9.2 % (21-51); MEAN CORPUSCULAR HGB CONC 34.3 g/dL (33.0-36.5); MEAN CORPUSCULAR VOLUME 104.9 FL (78-98); MEAN PLATELET VOLUME 9.6 FL (7.4-10.4); MONOCYTES # (AUTO) 1.3 X10'3 (0-0.9); MONOCYTES % (AUTO) 8.7 % (2-12); NEUTROPHILS # (AUTO) 12.5 X10'3 (1.8-7.7); NEUTROPHILS % (AUTO) 81.2 % (42-75); PLATELET COUNT 127 X10'3 (140-440); RED BLOOD COUNT 2.93 X10'6 (4.20-5.60); RED CELL DISTRIBUTION WIDTH 14.9 % (11.5-14.5); WHITE BLOOD COUNT 15.4 X10'3 (4.5-11.0)
--- NOTE | 2022-03-17 06:37 | NUR ---
Problems reprioritized. Patient report given, questions answered & plan of care reviewed with Hetal BOLAND.
[2022-03-17 06:43] LABS: ALANINE AMINOTRANSFERASE 81 U/L (12-78); ALBUMIN 1.6 G/DL (3.4-5.0); ALBUMIN/GLOBULIN RATIO 0.5 (1.1-1.5); ALKALINE PHOSPHATASE 185 IU/L (46-116); ANION GAP 10 (8-16); ASPARTATE AMINO TRANSFERASE 162 U/L (10-37); BILIRUBIN,TOTAL 20.7 MG/DL (0.1-1.0); BLOOD UREA NITROGEN 39 MG/DL (7-18); CALCIUM 7.6 MG/DL (8.5-10.1); CHLORIDE 107 MMOL/L (99-107); CREATININE 1.56 MG/DL (0.40-0.90); GLUCOSE 87 MG/DL (70-104); MAGNESIUM 1.3 MG/DL (1.5-2.4); POTASSIUM 3.7 MMOL/L (3.5-5.1); SODIUM 138 MMOL/L (135-145); TOTAL PROTEIN 4.6 G/DL (6.4-8.2); eGFR 35 ML/MIN
--- NOTE | 2022-03-17 06:43 | NUR ---
Patient in room PCU 3012. I have received report from Alix ALVES and had the opportunity to ask questions and assume patient care.Patient resting with eyes closed , tabs alarm on rails upx3
[2022-03-17] MEDS: K and/or MAG REPLACEMENT MC SCH ×2 (08:00→20:00)
[2022-03-17] MEDS: thiamine 100mg tablet PO SCH (08:30)
[2022-03-17] MEDS: folic acid 1mg tablet PO SCH (08:30)
[2022-03-17] MEDS: spironolactone 25 MG tablet PO SCH (08:30)
[2022-03-17] MEDS: docusate sod 100mg capsule PO SCH ×2 (08:30→20:00)
[2022-03-17] MEDS: CefTRIAXone/D5W-Rocephin 1gm 50 ML IV SCH (08:30)
[2022-03-17] MEDS: ESCITALOPRAM OXALATE 5 MG TABLET PO SCH (08:31)
[2022-03-17] MEDS: LORazepam 1 MG tablet PO SCH ×3 (08:31→21:00)
[2022-03-17] MEDS: nicotine 21mg patch - 24 hr TD SCH (08:31)
[2022-03-17] MEDS: multivitamins, therapeutics tablet PO SCH (08:31)
[2022-03-17 11:00] VITALS: BP 113/41
[2022-03-17] MEDS: oxyCODONE IR 5mg (immed. release) tablet PO PRN (13:48)
[2022-03-17 15:00] VITALS: BP 99/36
[2022-03-17 18:00] VITALS: BP 122/56
--- NOTE | 2022-03-17 18:20 | NUR ---
Patient in room PCU 3012. I have received report from patric mills and had the opportunity to ask questions and assume patient care.
--- NOTE | 2022-03-17 18:47 | NUR ---
Problems reprioritized. Patient report given, questions answered & plan of care reviewed with Alix ALVES.
--- NOTE | 2022-03-17 19:40 | NUR ---
CALLED DR HOANG WHO CONFIRMED FLUIDS CAN BE DISCONTINUED NOW THAT PT IS ON COMFORT CARE AND VS CAN BE DONE ONCE PER SHIFT
--- NOTE | 2022-03-18 05:29 | NUR ---
RESTING COMFORTABLY NO CHANGE IN ASSESSMENT. IN AGREEMENT WITH TRACTOR OPERATOR ASSESSMENT.
[2022-03-18 06:00] VITALS: BP 82/49
--- NOTE | 2022-03-18 06:39 | NUR ---
Problems reprioritized. Patient report given, questions answered & plan of care reviewed with patric mills.
--- NOTE | 2022-03-18 06:56 | NUR ---
Patient in room PCU 3012. I have received report from Alix ALVES and had the opportunity to ask questions and assume patient care.
[2022-03-18] MEDS ORDERED: morphine ORAL 5MG/0.25 ML (Conc. morphine) oral syringe PO PRN (08:45)
[2022-03-18] MEDS: LORazepam 2 mg/ml vial IV PRN ×2 (09:08→13:53)
--- NOTE | 2022-03-18 11:17 | NUR ---
Initial: Pt presented with c/o falls and not feeling well and admit for ESLD with hepatorenal syndrome. Pt on a heart healthy diet and overall not eating well with mostly 25% PO intake. No nutrition intervention to be implemented as pt DNR with comfort care. [facility] 03/18. Will continue to follow per LOS. Recommendations: 1) Bowel care per comfort care measures Addendum: 03/18/22 at [address] Amended: Links added.
[2022-03-18 18:00] VITALS: BP 115/67
--- NOTE | 2022-03-18 18:10 | NUR ---
Patient in room [place] [address]. I have received report from myrtle mills and had the opportunity to ask questions and assume patient care. Addendum: 03/19/22 at 0432 by Alix Redman LVN Patient in room [place] [address]. I have received report from Hetal mills and had the opportunity to ask questions and assume patient care.
--- NOTE | 2022-03-18 18:12 | NUR ---
Problems reprioritized. Patient report given, questions answered & plan of care reviewed with Alix ALVES.
[2022-03-18 19:00] VITALS: BP 115/67
[2022-03-18] MEDS: morphine 10mg/0.5ml (conc. morphine) oral syringe PO PRN (21:41)
--- NOTE | 2022-03-19 | NUR ---
called dr reid who ordered augustin cath. order entered and augustin inserted
[2022-03-19] MEDS ORDERED: LIDOcaine 2% 10ml TOPICAL JELLY (Urojet) TP ONE (00:10)
--- NOTE | 2022-03-19 05:53 | NUR ---
AGREE WITH NUCLEAR TEST TECHNICIAN PHYSICAL ASSESSMENT CHARTED
[2022-03-19 06:00] VITALS: BP 82/52
[2022-03-19 06:04] LABS: BASOPHILS # (AUTO) 0.1 X10'3 (0-0.2); BASOPHILS % (AUTO) 0.7 % (0-1); EOSINOPHILS # (AUTO) 0.1 X10'3 (0-0.9); EOSINOPHILS % (AUTO) 0.7 % (0-6); HEMOGLOBIN 11.1 g/dl (12.0-16.0); LYMPHOCYTES # (AUTO) 2.2 X10'3 (1.1-4.8); LYMPHOCYTES % (AUTO) 14.9 % (21-51); MEAN CORPUSCULAR HEMOGLOBIN 35.2 PG (27.0-31.0); MEAN CORPUSCULAR HGB CONC 33.8 g/dL (33.0-36.5); MEAN CORPUSCULAR VOLUME 104.3 FL (78-98); MEAN PLATELET VOLUME 9.3 FL (7.4-10.4); MONOCYTES # (AUTO) 1.5 X10'3 (0-0.9); MONOCYTES % (AUTO) 10.1 % (2-12); NEUTROPHILS # (AUTO) 11.1 X10'3 (1.8-7.7); NEUTROPHILS % (AUTO) 73.6 % (42-75); PLATELET COUNT 153 X10'3 (140-440); RED BLOOD COUNT 3.16 X10'6 (4.20-5.60); RED CELL DISTRIBUTION WIDTH 14.8 % (11.5-14.5); WHITE BLOOD COUNT 15.1 X10'3 (4.5-11.0)
--- NOTE | 2022-03-19 06:25 | NUR ---
Problems reprioritized. Patient report given, questions answered & plan of care reviewed with jailyn BOLAND.
[2022-03-19 06:34] LABS: ALANINE AMINOTRANSFERASE 72 U/L (12-78); ALBUMIN 1.6 G/DL (3.4-5.0); ALKALINE PHOSPHATASE 196 IU/L (46-116); ANION GAP 12 (8-16); BILIRUBIN,TOTAL 19.8 MG/DL (0.1-1.0); BLOOD UREA NITROGEN 37 MG/DL (7-18); CALCIUM 7.8 MG/DL (8.5-10.1); CHLORIDE 109 MMOL/L (99-107); SODIUM 140 MMOL/L (135-145); TOTAL CARBON DIOXIDE 19.5 MMOL/L (24-32)
[2022-03-19 06:37] LABS: ALBUMIN/GLOBULIN RATIO 0.5 (1.1-1.5); ASPARTATE AMINO TRANSFERASE 143 U/L (10-37); BUN/CREATININE RATIO 24.2 (6.6-38.0); CREATININE 1.53 MG/DL (0.40-0.90); GLUCOSE 96 MG/DL (70-104); POTASSIUM 3.7 MMOL/L (3.5-5.1); TOTAL PROTEIN 4.7 G/DL (6.4-8.2); eGFR 36 ML/MIN
--- NOTE | 2022-03-19 06:45 | NUR ---
Patient in room PCU 3012A. I have received report from JOSELYN HUSSEIN and had the opportunity to ask questions and assume patient care.
[2022-03-19 19:00] VITALS: BP 98/50
[2022-03-19] MEDS: morphine 10mg/0.5ml (conc. morphine) oral syringe PO PRN (19:45)
--- NOTE | 2022-03-19 20:02 | NUR ---
Problems reprioritized. Patient report given, questions answered & plan of care reviewed with KRYSTIAN DAVISON.
--- NOTE | 2022-03-20 07:19 | NUR ---
Patient in room PCU 3012A. I have received report from KRYSTIAN DAVISON and had the opportunity to ask questions and assume patient care.
[2022-03-20 11:00] VITALS: BP 102/62
[2022-03-20] MEDS: LORazepam 2 mg/ml vial IV PRN (14:49)
[2022-03-20 15:00] VITALS: BP 107/70
--- NOTE | 2022-03-20 15:00 | NUR ---
AT APPROXIMALLY 1345 I HEARD TABS ALARM ALARMING, BEFORE I GOT TO ROOM A I HEARD SOMETHING FALL. WALKED INTO ROOM PATIENT WAS NOT IN BED, JUNIOR CATHETER WAS ON FLOOR, BATHROOM DOOR WAS SLIGHTLY OPEN. I OPENED THE DOOR AND PATIENT WAS ON THE GROUND LYING ON HER RIGHT SIDE. THERE WERE NO OBVIOUS WOUNDS NO OPEN AREAS. WE GOT A GATE BELT AND A WHEELCHAIR, IT TOOK TWO PEOPLE TO STAND HER UP AND WE GOT HER INTO THE WHEELCHAIR. WE GOT VITALS AND INSPECTED HER HEAD AND FACE, PATIENT STATED SHE HIT HER HEAD, NO BUMPS WERE FOUND, ON HER RIGHT CHEEK THERE WAS A NICKOLAS WHICH LATER STARTED TO BRUISE. PATIENT COMPLAINED FOR PAIN WHILE STANDING BUT PATIENT WAS ABLE TO STAND WITHOUT DIFFICULTY. WE PUT HER INTO BED. THERE WAS SOME BLEEDING FROM THE VAGINAL AREA FROM WHERE THE CATHETER WAS PULLED. WAS PAGED
--- NOTE | 2022-03-20 18:58 | NUR ---
Problems reprioritized. Patient report given, questions answered & plan of care reviewed with JOSELYN QUARLES.
[2022-03-20 19:00] VITALS: BP 86/46
[2022-03-21] MEDS: morphine 10mg/0.5ml (conc. morphine) oral syringe PO PRN (02:31)
[2022-03-21 06:00] VITALS: BP 83/65
--- NOTE | 2022-03-21 06:07 | NUR ---
Problems reprioritized. Patient report given, questions answered & plan of care reviewed with jailyn.
--- NOTE | 2022-03-21 06:33 | NUR ---
Patient in room PCU 3012A. I have received report from JOSELYN QUARLES and had the opportunity to ask questions and assume patient care.
--- NOTE | 2022-03-21 18:29 | NUR ---
Problems reprioritized. Patient report given, questions answered & plan of care reviewed with JOSELYN QUARLES.
--- NOTE | 2022-03-21 18:30 | NUR ---
Patient in room PCU 3012. I have received report from jailyn and had the opportunity to ask questions and assume patient care.
[2022-03-21 19:00] VITALS: BP 98/53
[2022-03-22 06:00] VITALS: BP 96/56
--- NOTE | 2022-03-22 06:13 | NUR ---
Problems reprioritized. Patient report given, questions answered & plan of care reviewed with
--- NOTE | 2022-03-22 06:38 | NUR ---
Patient in room PCU 3012. I have received report from KRYSTIAN Valenzuela and had the opportunity to ask questions and assume patient care.
--- NOTE | 2022-03-22 12:24 | NUR ---
promotional table spacer PAGER ID: [phone] MESSAGE: [id number]- Patient is requesting PO pain medication please.Thank you Nena [phone]
[2022-03-22] MEDS: morphine 10mg/0.5ml (conc. morphine) oral syringe PO PRN (13:19)
--- NOTE | 2022-03-22 18:17 | NUR ---
Problems reprioritized. Patient report given, questions answered & plan of care reviewed with KRYSTIAN Longoria.
--- NOTE | 2022-03-22 18:29 | NUR ---
Patient in room PCU 3012 A. I have received report from Nena ALVES and had the opportunity to ask questions and assume patient care.
[2022-03-22 19:00] VITALS: BP 106/56
--- NOTE | 2022-03-23 06:31 | NUR ---
Patient in room PCU 3012. I have received report from otis BOLAND and had the opportunity to ask questions and assume patient care.
--- NOTE | 2022-03-23 06:32 | NUR ---
Problems reprioritized. Patient report given, questions answered & plan of care reviewed with Genesis BOLAND.
--- NOTE | 2022-03-23 06:46 | NUR ---
Patient in room PCU 3012. I have received report from otis BOLAND and had the opportunity to ask questions and assume patient care.
[2022-03-23 07:00] VITALS: BP 99/56
[2022-03-23] MEDS: morphine 10mg/0.5ml (conc. morphine) oral syringe PO PRN ×3 (08:05→20:47)
[2022-03-23 10:00] VITALS: BP_SYST 89; BP_SYST 92; BP_DIAS 52; BP_DIAS 53
[2022-03-23 15:00] VITALS: BP 102/61
--- NOTE | 2022-03-23 15:04 | NUR ---
patient anxious and restless this morning, medicated with roxanol for pain with good result . will continue to monitor
--- NOTE | 2022-03-23 18:22 | NUR ---
patient appears comfortable. seen by DR delacruz no new orders. All cares given. Report given to Swati BOLAND
--- NOTE | 2022-03-23 18:27 | NUR ---
Patient in room PCU 3012A. I have received report from Genesis BOLAND and had the opportunity to ask questions and assume patient care.
[2022-03-23 18:30] VITALS: BP 94/57
[2022-03-24 06:00] VITALS: BP 105/55
--- NOTE | 2022-03-24 06:25 | NUR ---
Problems reprioritized. Patient report given, questions answered & plan of care reviewed with Genesis BOLAND.
--- NOTE | 2022-03-24 06:43 | NUR ---
Patient in room PCU 3012. I have received report from otis BOLAND and had the opportunity to ask questions and assume patient care.
[2022-03-24] MEDS: morphine 10mg/0.5ml (conc. morphine) oral syringe PO PRN ×2 (07:43→16:58)
[2022-03-24 18:00] VITALS: BP 95/51
--- NOTE | 2022-03-24 18:29 | NUR ---
Back rub given to patient for chronic back pain with good relief. patient medicated x2 with Roxanol for pain with good effect. More quiet today, daughter into see patient. Report given to Swati BOLAND
--- NOTE | 2022-03-24 18:51 | NUR ---
Patient in room PCU 3012A. I have received report from Genesis BOLAND and had the opportunity to ask questions and assume patient care.
[2022-03-25 06:00] VITALS: BP 76/41
--- NOTE | 2022-03-25 06:38 | NUR ---
Problems reprioritized. Patient report given, questions answered & plan of care reviewed with Meagan BOLAND.
[2022-03-25] MEDS: morphine 10mg/0.5ml (conc. morphine) oral syringe PO PRN ×2 (09:46→14:33)
[2022-03-25 18:30] VITALS: BP 90/46
--- NOTE | 2022-03-25 18:50 | NUR ---
Problems reprioritized. Patient report given, questions answered & plan of care reviewed with Moni RN.
[2022-03-26 06:00] VITALS: BP 82/49
--- NOTE | 2022-03-26 06:50 | NUR ---
Patient in room PCU 3012. I have received report from KRYSTIAN Monten[place]ro and had the opportunity to ask questions and assume patient care.
[2022-03-26] MEDS: morphine 10mg/0.5ml (conc. morphine) oral syringe PO PRN (13:47)
--- NOTE | 2022-03-26 18:20 | NUR ---
Problems reprioritized. Patient report given, questions answered & plan of care reviewed with JOSELYN Valenzuela.
[2022-03-26 19:00] VITALS: BP 85/50
--- NOTE | 2022-03-27 06:15 | NUR ---
Problems reprioritized. Patient report given, questions answered & plan of care reviewed with deirdre.
--- NOTE | 2022-03-27 06:42 | NUR ---
Patient in room [place] [id number]. I have received report from KRYSTIAN Lang and had the opportunity to ask questions and assume patient care. Addendum: 03/27/22 at 0645 by Veronica Rodriguez RN Patient in room [place] [address]. I have received report from JOSELYN Valenzuela and had the opportunity to ask questions and assume patient care.
[2022-03-27 07:00] VITALS: BP 83/54
[2022-03-27] MEDS: morphine 10mg/0.5ml (conc. morphine) oral syringe PO PRN (13:04)
--- NOTE | 2022-03-27 15:10 | NUR ---
PRESSURE ULCER EDUCATION: DEFINITION: A pressure ulcer is an area of skin that breaks down when you stay in one position too long. The constant pressure against the skin reduces the blood flow to that area and the affected tissue dies. CAUSES: "Being bedridden or in a wheelchair "Fragile skin "Having a chronic condition, such as diabetes or vascular disease "Inability to move certain parts of your body without assistance "Older age "Incontinence of urine or stool SYMPTOMS: "A reddened area that DOES NOT turn white when pressed on - this can be the beginning of a pressure ulcer "A blister, deep sore or a crater - these can be advanced pressure ulcers FIRST AID: "Relieve the pressure on this area "Keep the area clean and dry "Call your primary doctor if you see any of the above symptoms "DO NOT massage the area "DO NOT use a donut shaped or ring shaped pillow- these actually interfere with the blood flow and cause complications PREVENTION: "Check for pressure ulcers everyday "Change position at least every two hours to relieve pressure "Use items that help relieve pressure- pillows, sheepskin, foam padding, and powders. "Keep skin clean and dry "Eat healthy well balanced meals "Exercise daily IF YOU SEE ANY OF THESE SYMPTOMS WHILE IN THE HOSPITAL - TELL YOUR NURSE IMMEDIATELY. IF YOU SEE ANY OF THESE SYMPTOMS WHILE AT HOME OR HAVE ANY QUESTIONS OR CONCERNS ABOUT PRESSURE ULCERS - CALL YOUR PRIMARY DOCTOR IMMEDIATELY. Addendum: 03/27/22 at 1511 by Halle David LVN Amended: Links added.
--- NOTE | 2022-03-27 16:42 | NUR ---
Pt's phone and unknown keys went home with friend/neighbor Maddi at the request of pt's daughter.
--- NOTE | 2022-03-27 18:30 | NUR ---
Problems reprioritized. Patient report given, questions answered & plan of care reviewed with JOSELYN Valenzuela.
--- NOTE | 2022-03-27 18:30 | NUR ---
Patient in room PCU 3012. I have received report from deirdre and had the opportunity to ask questions and assume patient care.
[2022-03-27 19:00] VITALS: BP 98/44
--- NOTE | 2022-03-28 06:09 | NUR ---
Problems reprioritized. Patient report given, questions answered & plan of care reviewed with cj.
--- NOTE | 2022-03-28 06:10 | NUR ---
Patient in room PCU 3012. I have received report from Nicolas ALVES and had the opportunity to ask questions and assume patient care.
[2022-03-28] MEDS: morphine 10mg/0.5ml (conc. morphine) oral syringe PO PRN ×2 (11:49→15:53)
--- NOTE | 2022-03-28 18:30 | NUR ---
Patient in room PCU 3012. I have received report from cj and had the opportunity to ask questions and assume patient care.
--- NOTE | 2022-03-28 18:52 | NUR ---
Problems reprioritized. Patient report given, questions answered & plan of care reviewed with Nicolas ALVES, patient on is comfortable on comfort care.
--- NOTE | 2022-03-28 21:34 | NUR ---
pt refused, and family requested no vitals Addendum: 03/28/22 at 2136 by Jamari Connelly LVN Amended: Links added.
--- NOTE | 2022-03-29 06:57 | NUR ---
Problems reprioritized. Patient report given, questions answered & plan of care reviewed with
[2022-03-29] MEDS: morphine 10mg/0.5ml (conc. morphine) oral syringe PO PRN ×3 (11:40→16:30)
[2022-03-29] MEDS: LORazepam 2 mg/ml vial IV PRN (12:19)
[2022-03-29] MEDS ORDERED: morphine ORAL 5MG/0.25 ML (Conc. morphine) oral syringe PO PRN (12:35)
--- NOTE | 2022-03-29 17:26 | NUR ---
notified of Time of . PAGER ID: [phone] MESSAGE: Seema Lopez [id number] 17:20 Time of . Nursing will call the family.
--- NOTE | 2022-03-29 17:31 | NUR ---
Daughter Liana has been called and informed of her mothers passing. She lives 10 hours away and does have a plan at this time.
== END 2022-03-29 21:00 | DRG 720 ==
LOC: ER 11:47 → ED HOLD 15:45 → PCU 3S 23:30
PROVIDERS: ADMIT Family Medicine; ATTEND Family Medicine
PROC: 0W9G3ZX Drainage of Peritoneal Cavity, Percutaneous Approach, Diagnostic (ICD-10-PCS; principal; 2022-03-15)
DX: A41.9 Sepsis, unspecified organism (principal); K76.7 Hepatorenal syndrome; G93.41 Metabolic encephalopathy; K70.40 Alcoholic hepatic failure without coma; K70.31 Alcoholic cirrhosis of liver with ascites; I95.9 Hypotension, unspecified; N17.9 Acute kidney failure, unspecified; K70.11 Alcoholic hepatitis with ascites; Z20.822 Contact with and (suspected) exposure to COVID-19; N18.4 Chronic kidney disease, stage 4 (severe); D72.829 Elevated white blood cell count, unspecified; E87.6 Hypokalemia; F32.A Depression, unspecified; F41.9 Anxiety disorder, unspecified; G89.29 Other chronic pain; Z66 Do not resuscitate; F17.210 Nicotine dependence, cigarettes, uncomplicated; W01.0XXA Fall on same level from slipping, tripping and stumbling without subsequent striking against object, initial encounter; Y93.89 Activity, other specified; Y92.098 Other place in other non-institutional residence as the place of occurrence of the external cause; Y99.8 Other external cause status; Z51.5 Encounter for palliative care
CPT/HCPCS: 36415; 49083; 71045; 74176; 80053; 80305; 80320; 81001; 82042; 82140; 82945; 83605; 83615; 83735; 84145; 84157; 85007; 85025; 85610; 87040; 87070; 87081; 89051; 93005; 99291; 99292; A4314; A5200; A6213; G0378; J0696; J2060; J3490; J7030; P9047